=== PATIENT | male | born 2000 | race Hispanic/Latino ===

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

== ENCOUNTER 2022-08-16 01:41 | Emergency (ER) | payer OTHER ==
--- OUTSIDE RECORDS SUMMARY | 2022-08-16 01:47 | XMS REPORT | Continuity of Care Document ---
:2000 Author Organization [facility] t Address [address] [place] [address] Care Team Providers Name Role Phone SALAS DOYLE Primary Care Physician Unavailable Ansley Richards PA-C Attending Clinician ANSLEY RICHARDS Attending Clinician Unavailable SALAS DOYLE Attending Clinician Unavailable Doctor Unassigned, [place] Attending Clinician Unavailable Wilmer Handy MD Attending Clinician JHON KIM Attending Clinician Unavailable Matheus Panchal MD Attending Clinician Jhon Kim MD Attending Clinician ROCKY SALEEM Attending Clinician Unavailable Chidi Solorzano MA Attending Clinician Unavailable Anitha Choudhary MD Attending Clinician ANITHA CHOUDHARY Attending Clinician Unavailable Rocky Saleem MD Attending Clinician OLE DE LA GARZA Attending Clinician Unavailable Ole Hays Attending Clinician Sheri Acevedo RN Attending Clinician Unavailable FRAN DE JESUS Attending Clinician Unavailable Mino Donahue DO Attending Clinician Payers Payer Name Policy Type Policy Number Effective Date Expiration Date S ource Problems Condition Condition Condition Status Onset Resolution Last Treating Co mments Source Name Details Category Date Date Treatment Clinician Date Asthma Asthma Disease Active 2018-0 [facility] 3-21 ity of 00:00: [address] 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 Allergies, Adverse Reactions, Alerts Allergy Allergy Status Severity Reaction(s) Onset Inactive Treating Comm ents Source Name Type Date Date Clinician NO KNOWN Drug Active Univers ALLERGIE Class ity of S [facility] Social History Social Habit Start Date Stop Date Quantity Comments Source History of Passive smoker [place] of tobacco use [facility] Exposure to 2022-06-21 2022-07-01 Not sure [facility] SARS-CoV-2 00:00:00 14:43:00 [facility] (event) Branch Tobacco use and 2017-12-15 2017-12-15 Smokeless tobacco Un iversity of exposure 00:00:00 00:00:00 non-user [facility] Sex Assigned At [birth year] Universit y of 00:00:00 00:00:00 [facility] Smoking Status Start Date Stop Date Source Never smoked tobacco [facility] [place] [facility] Medications Ordered Filled Start Stop Current Ordering Indication Dosage Frequency Signature Comments Components Source Medication Medication Date Date Medication? Clinician (SIG) Name Name amphetamine 2021-09 Yes [id number] 20mg Take 1 Univers -dextroamph 0-07 capsule by it y of etamine 00:00: mouth [place] (ADDERALL 00 every Medical XR) 20 mg morning. Branch 24 hr capsule amphetamine 2021-09 Yes [id number] 20mg Take 1 Univers -dextroamph 0-07 capsule by it y of etamine 00:00: mouth [place] (ADDERALL 00 every Medical XR) 20 mg morning. Branch 24 hr capsule amphetamine 2021-09 Yes [id number] 20mg Take 1 Univers -dextroamph 0-07 capsule by it y of etamine 00:00: mouth [place] (ADDERALL 00 every Medical XR) 20 mg morning. Branch 24 hr capsule lisdexamfet Yes [id number] 60mg Take 1 Univers amine 9-20 capsule by ity of (VYVANSE) 00:00: mouth [place] 60 mg 00 every Medical capsule morning. Branch lisdexamfet Yes [id number] 60mg Take 1 [facility] amine 9-20 capsule by ity of (VYVANSE) 00:00: mouth [place] 60 mg 00 every Medical capsule morning. Branch lisdexamfet Yes [id number] 60mg Take 1 Univers amine 9-20 capsule by ity of (VYVANSE) 00:00: mouth [place] 60 mg 00 every Medical capsule morning. Branch lisdexamfet Yes [id number] 60mg Take 1 Univers amine 9-20 capsule by ity of (VYVANSE) 00:00: mouth [place] 60 mg 00 every Medical capsule morning. Branch lisdexamfet 2021- No [id number] 60mg Take 1 Univers amine 9-20 10-07 capsule by ity of (VYVANSE) 00:00: 00:00 mouth [place] 60 mg 00 :00 every Medical capsule morning. Branch lisdexamfet Yes [id number] 60mg Take 1 Univers amine 8-17 capsule by ity of (VYVANSE) 00:00: mouth [place] 60 mg 00 every Medical capsule morning. Branch lisdexamfet 0 2021- No [id number] 60mg Take 1 Univers amine 8-17 09-20 capsule by ity of (VYVANSE) 00:00: 00:00 mouth [place] 60 mg 00 :00 every Medical capsule morning. Branch lisdexamfet Yes [id number] 60mg Take 1 Univers amine 7-13 capsule by ity of (VYVANSE) 00:00: mouth [place] 60 mg 00 every Medical capsule morning. Branch lisdexamfet 2021-0 2- No [id number] 60mg Take 1 Univers amine 7-13 08-17 capsule by ity of (VYVANSE) 00:00: 00:00 mouth [place] 60 mg 00 :00 every Medical capsule morning. Branch lisdexamfet 2021-0 Yes [id number] 60mg Take 1 Univers amine 6-07 capsule by ity of (VYVANSE) 00:00: mouth [place] 60 mg 00 every Medical capsule morning. Branch lisdexamfet 2021-0 Yes [id number] 60mg Take 1 Univers amine 6-07 capsule by ity of (VYVANSE) 00:00: mouth [place] 60 mg 00 every Medical capsule morning. Branch lisdexamfet 2021-0 2021- No [id number] 60mg Take 1 Univers amine 6-07 07-13 capsule by ity of (VYVANSE) 00:00: 00:00 mouth [place] 60 mg 00 :00 every Medical capsule morning. Branch polyethylen 2021-0 Yes [id number] Mix 1-2 Univers e glycol 4-25 capfuls ity of 3350 00:00: with 8 oz [place] (MIRALAX) 00 water or Medica l 17 juice and Branch gram/dose take once powder daily to produce soft stool fluticasone 2-0 Yes [id number] 2{spray Use 2 Univers propionate 4-25 } Sprays in ity of 50 00:00: each [place] mcg/actuati 00 nostril Medic al on nasal daily. Branch spray polyethylen 2021-0 Yes [id number] Mix 1-2 Univers e glycol 4-25 capfuls ity of 3350 00:00: with 8 oz [place] (MIRALAX) 00 water or Medica l 17 juice and Branch gram/dose take once powder daily to produce soft stool fluticasone 2022-0 Yes [id number] 2{spray Use 2 Univers propionate 4-25 } Sprays in ity of 50 00:00: each [place] mcg/actuati 00 nostril Medic al on nasal daily. Branch spray polyethylen 2-0 Yes [id number] Mix 1-2 Univers e glycol 4-25 capfuls ity of 3350 00:00: with 8 oz [place] (MIRALAX) 00 water or Medica l 17 juice and Branch gram/dose take once powder daily to produce soft stool fluticasone 2022-0 Yes [id number] 2{spray Use 2 Univers propionate 4-25 } Sprays in ity of 50 00:00: each [place] mcg/actuati 00 nostril Medic al on nasal daily. Branch spray polyethylen 2022-0 Yes [id number] Mix 1-2 Univers e glycol 4-25 capfuls ity of 3350 00:00: with 8 oz [place] (MIRALAX) 00 water or Medica l 17 juice and Branch gram/dose take once powder daily to produce soft stool fluticasone 2022-0 Yes [id number] 2{spray Use 2 Univers propionate 4-25 } Sprays in ity of 50 00:00: each [place] mcg/actuati 00 nostril Medic al on nasal daily. Branch spray polyethylen 2022-0 Yes [id number] Mix 1-2 Univers e glycol 4-25 capfuls ity of 3350 00:00: with 8 oz [place] (MIRALAX) 00 water or Medica l 17 juice and Branch gram/dose take once powder daily to produce soft stool fluticasone 2022-0 Yes [id number] 2{spray Use 2 Univers propionate 4-25 } Sprays in ity of 50 00:00: each [place] mcg/actuati 00 nostril Medic al on nasal daily. Branch spray polyethylen 2022-0 Yes [id number] Mix 1-2 Univers e glycol 4-25 capfuls ity of 3350 00:00: with 8 oz [place] (MIRALAX) 00 water or Medica l 17 juice and Branch gram/dose take once powder daily to produce soft stool fluticasone 2022-0 Yes [id number] 2{spray Use 2 Univers propionate 4-25 } Sprays in ity of 50 00:00: each [place] mcg/actuati 00 nostril Medic al on nasal daily. Branch spray polyethylen 2022-0 Yes [id number] Mix 1-2 Univers e glycol 4-25 capfuls ity of 3350 00:00: with 8 oz [place] (MIRALAX) 00 water or Medica l 17 juice and Branch gram/dose take once powder daily to produce soft stool fluticasone 2022-0 Yes [id number] 2{spray Use 2 Univers propionate 4-25 } Sprays in ity of 50 00:00: each [place] mcg/actuati 00 nostril Medic al on nasal daily. Branch spray polyethylen 2-0 Yes [id number] Mix 1-2 Univers e glycol 4-25 capfuls ity of 3350 00:00: with 8 oz [place] (MIRALAX) 00 water or Medica l 17 juice and Branch gram/dose take once powder daily to produce soft stool fluticasone 2022-0 Yes [id number] 2{spray Use 2 Univers propionate 4-25 } Sprays in ity of 50 00:00: each [place] mcg/actuati 00 nostril Medic al on nasal daily. Branch spray polyethylen 2-0 Yes [id number] Mix 1-2 Univers e glycol 4-25 capfuls ity of 3350 00:00: with 8 oz [place] (MIRALAX) 00 water or Medica l 17 juice and Branch gram/dose take once powder daily to produce soft stool fluticasone 2022-0 Yes [id number] 2{spray Use 2 Univers propionate 4-25 } Sprays in ity of 50 00:00: each [place] mcg/actuati 00 nostril Medic al on nasal daily. Branch spray polyethylen 2-0 Yes [id number] Mix 1-2 Univers e glycol 4-25 capfuls ity of 3350 00:00: with 8 oz [place] (MIRALAX) 00 water or Medica l 17 juice and Branch gram/dose take once powder daily to produce soft stool fluticasone 2022-0 Yes [id number] 2{spray Use 2 Univers propionate 4-25 } Sprays in ity of 50 00:00: each [place] mcg/actuati 00 nostril Medic al on nasal daily. Branch spray polyethylen 2-0 Yes [id number] Mix 1-2 Univers e glycol 4-25 capfuls ity of 3350 00:00: with 8 oz [place] (MIRALAX) 00 water or Medica l 17 juice and Branch gram/dose take once powder daily to produce soft stool fluticasone 2022-0 Yes [id number] 2{spray Use 2 Univers propionate 4-25 } Sprays in ity of 50 00:00: each [place] mcg/actuati 00 nostril Medic al on nasal daily. Branch spray polyethylen 2022-0 Yes [id number] Mix 1-2 Univers e glycol 4-25 capfuls ity of 3350 00:00: with 8 oz [place] (MIRALAX) 00 water or Medica l 17 juice and Branch gram/dose take once powder daily to produce soft stool fluticasone Yes [id number] 2{spray Use 2 Univers propionate 4-25 } Sprays in ity of 50 00:00: each [place] mcg/actuati 00 nostril Medic al on nasal daily. Branch spray pantoprazol Yes [id number] 40mg Take 1 Univers e 40 mg EC 8-30 tablet by ity of tablet 00:00: mouth [place] 00 daily. Medical Branch aluminum Yes [id number] Apply to Univers chloride 20 8-30 area(s) at it y of % external 00:00: bedtime. [place] solution 00 Medical Branch ketoconazol Yes [id number] Apply to Univers e 2 % 8-30 area(s) ity of shampoo 00:00: once daily [place] 00 as needed Medical for Branch Itching. pantoprazol Yes [id number] 40mg Take 1 Univers e 40 mg EC 8-30 tablet by ity of tablet 00:00: mouth [place] 00 daily. Medical Branch aluminum Yes [id number] Apply to Univers chloride 20 8-30 area(s) at it y of % external 00:00: bedtime. [place] solution 00 Medical Branch ketoconazol Yes [id number] Apply to Univers e 2 % 8-30 area(s) ity of shampoo 00:00: once daily [place] 00 as needed Medical for Branch Itching. pantoprazol Yes [id number] 40mg Take 1 Univers e 40 mg EC 8-30 tablet by ity of tablet 00:00: mouth [place] 00 daily. Medical Branch aluminum Yes [id number] Apply to Univers chloride 20 8-30 area(s) at it y of % external 00:00: bedtime. [place] solution 00 Medical Branch ketoconazol Yes [id number] Apply to Univers e 2 % 8-30 area(s) ity of shampoo 00:00: once daily [place] 00 as needed Medical for Branch Itching. pantoprazol Yes [id number] 40mg Take 1 Univers e 40 mg EC 8-30 tablet by ity of tablet 00:00: mouth [place] 00 daily. Medical Branch aluminum 0 Yes [id number] Apply to Univers chloride 20 8-30 area(s) at it y of % external 00:00: bedtime. [place] solution 00 Medical Branch ketoconazol Yes [id number] Apply to Univers e 2 % 8-30 area(s) ity of shampoo 00:00: once daily [place] 00 as needed Medical for Branch Itching. pantoprazol Yes [id number] 40mg Take 1 Univers e 40 mg EC 8-30 tablet by ity of tablet 00:00: mouth [place] 00 daily. Medical Branch aluminum 0 Yes [id number] Apply to Univers chloride 20 8-30 area(s) at it y of % external 00:00: bedtime. [place] solution 00 Medical Branch ketoconazol Yes [id number] Apply to Univers e 2 % 8-30 area(s) ity of shampoo 00:00: once daily [place] 00 as needed Medical for Branch Itching. pantoprazol Yes [id number] 40mg Take 1 Univers e 40 mg EC 8-30 tablet by ity of tablet 00:00: mouth [place] 00 daily. Medical Branch aluminum 0 Yes [id number] Apply to Univers chloride 20 8-30 area(s) at it y of % external 00:00: bedtime. [place] solution 00 Medical Branch ketoconazol Yes [id number] Apply to Univers e 2 % 8-30 area(s) ity of shampoo 00:00: once daily [place] 00 as needed Medical for Branch Itching. pantoprazol Yes [id number] 40mg Take 1 Univers e 40 mg EC 8-30 tablet by ity of tablet 00:00: mouth [place] 00 daily. Medical Branch aluminum 0 Yes [id number] Apply to Univers chloride 20 8-30 area(s) at it y of % external 00:00: bedtime. [place] solution 00 Medical Branch ketoconazol Yes [id number] Apply to Univers e 2 % 8-30 area(s) ity of shampoo 00:00: once daily [place] 00 as needed Medical for Branch Itching. pantoprazol Yes [id number] 40mg Take 1 Univers e 40 mg EC 8-30 tablet by ity of tablet 00:00: mouth [place] 00 daily. Medical Branch aluminum 0 Yes [id number] Apply to Univers chloride 20 8-30 area(s) at it y of % external 00:00: bedtime. [place] solution 00 Medical Branch ketoconazol Yes [id number] Apply to Univers e 2 % 8-30 area(s) ity of shampoo 00:00: once daily [place] 00 as needed Medical for Branch Itching. pantoprazol Yes [id number] 40mg Take 1 Univers e 40 mg EC 8-30 tablet by ity of tablet 00:00: mouth [place] 00 daily. Medical Branch aluminum Yes [id number] Apply to Univers chloride 20 8-30 area(s) at it y of % external 00:00: bedtime. [place] solution 00 Medical Branch ketoconazol Yes [id number] Apply to Univers e 2 % 8-30 area(s) ity of shampoo 00:00: once daily [place] 00 as needed Medical for Branch Itching. pantoprazol Yes [id number] 40mg Take 1 Univers e 40 mg EC 8-30 tablet by ity of tablet 00:00: mouth [place] 00 daily. Medical Branch aluminum Yes [id number] Apply to Univers chloride 20 8-30 area(s) at it y of % external 00:00: bedtime. [place] solution 00 Medical Branch ketoconazol Yes [id number] Apply to Univers e 2 % 8-30 area(s) ity of shampoo 00:00: once daily [place] 00 as needed Medical for Branch Itching. pantoprazol Yes [id number] 40mg Take 1 Univers e 40 mg EC 8-30 tablet by ity of tablet 00:00: mouth [place] 00 daily. Medical Branch aluminum Yes [id number] Apply to Univers chloride 20 8-30 area(s) at it y of % external 00:00: bedtime. [place] solution 00 Medical Branch ketoconazol 0 Yes [id number] Apply to Univers e 2 % 8-30 area(s) ity of shampoo 00:00: once daily [place] 00 as needed Medical for Branch Itching. pantoprazol 0 Yes [id number] 40mg Take 1 Univers e 40 mg EC 8-30 tablet by ity of tablet 00:00: mouth [place] 00 daily. Medical Branch aluminum 2020-0 Yes [id number] Apply to Univers chloride 20 8-30 area(s) at it y of % external 00:00: bedtime. [place] solution 00 Medical Branch ketoconazol 0 Yes [id number] Apply to Univers e 2 % 8-30 area(s) ity of shampoo 00:00: once daily [place] 00 as needed Medical for Branch Itching. clindamycin 0 Yes [id number] Apply to Univers 1 % gel 4-19 area(s) ity of 00:00: every [place] 00 morning. Medical Branch tretinoin 2020-0 Yes [id number] Apply to Univers 0.025 % 4-19 area(s) at ity of cream 00:00: bedtime. Medical Branch clindamycin 2020-0 Yes [id number] Apply to Univers 1 % gel 4-19 area(s) ity of 00:00: every [place] 00 morning. Medical Branch tretinoin 2020-0 Yes [id number] Apply to Univers 0.025 % 4-19 area(s) at ity of cream 00:00: bedtime. Medical Branch clindamycin 2020-0 Yes [id number] Apply to Univers 1 % gel 4-19 area(s) ity of 00:00: every [place] 00 morning. Medical Branch tretinoin 2020-0 Yes [id number] Apply to Univers 0.025 % 4-19 area(s) at ity of cream 00:00: bedtime. Medical Branch clindamycin 2020-0 Yes [id number] Apply to Univers 1 % gel 4-19 area(s) ity of 00:00: every [place] 00 morning. Medical Branch tretinoin 2020-0 Yes [id number] Apply to Univers 0.025 % 4-19 area(s) at ity of cream 00:00: bedtime. [place] Medical Branch clindamycin 2020-0 Yes [id number] Apply to Univers 1 % gel 4-19 area(s) ity of 00:00: every [place] 00 morning. Medical Branch tretinoin 1-0 Yes [id number] Apply to Univers 0.025 % 4-19 area(s) at ity of cream 00:00: bedtime. [place] Medical Branch clindamycin 2020-0 Yes [id number] Apply to Univers 1 % gel 4-19 area(s) ity of 00:00: every [place] 00 morning. Medical Branch tretinoin 2020-0 Yes [id number] Apply to Univers 0.025 % 4-19 area(s) at ity of cream 00:00: bedtime. [place] Medical Branch clindamycin 2020-0 Yes [id number] Apply to Univers 1 % gel 4-19 area(s) ity of 00:00: every [place] 00 morning. Medical Branch tretinoin 2020-0 Yes [id number] Apply to Univers 0.025 % 4-19 area(s) at ity of cream 00:00: bedtime. [place] Medical Branch clindamycin 2020-0 Yes [id number] Apply to Univers 1 % gel 4-19 area(s) ity of 00:00: every [place] 00 morning. Medical Branch tretinoin 2020-0 Yes [id number] Apply to Univers 0.025 % 4-19 area(s) at ity of cream 00:00: bedtime. [place] Medical Branch clindamycin 2020-0 Yes [id number] Apply to Univers 1 % gel 4-19 area(s) ity of 00:00: every [place] 00 morning. Medical Branch tretinoin 1-0 Yes [id number] Apply to Univers 0.025 % 4-19 area(s) at ity of cream 00:00: bedtime. [place] Medical Branch clindamycin 2020-0 Yes [id number] Apply to Univers 1 % gel 4-19 area(s) ity of 00:00: every [place] 00 morning. Medical Branch tretinoin 1-0 Yes [id number] Apply to Univers 0.025 % 4-19 area(s) at ity of cream 00:00: bedtime. Medical Branch clindamycin 2020-0 Yes [id number] Apply to Univers 1 % gel 4-19 area(s) ity of 00:00: every [place] 00 morning. Medical Branch tretinoin 1-0 Yes [id number] Apply to Univers 0.025 % 4-19 area(s) at ity of cream 00:00: bedtime. [place] [facility] Branch clindamycin 2020-0 Yes [id number] Apply to Univers 1 % gel 4-19 area(s) ity of 00:00: every [place] 00 morning. Medical Branch tretinoin 2020-0 Yes [id number] Apply to Univers 0.025 % 4-19 area(s) at ity of cream 00:00: bedtime. [place] Medical Branch fluticasone 2020-0 Yes [id number] 2{puff} Inhale 2 Univers propion-luiz 2-23 Puffs 2 ity o f meteroL 00:00: (two) [place] 115-21 00 times Medical mcg/actuati daily. Branch on inhaler fluocinolon 2020-0 Yes [id number] Apply to Univers e 0.01 % 2-23 area(s) 2 ity of solution 00:00: (two) [place] 00 times Medical daily. Branch fluticasone 2020-0 Yes [id number] 2{puff} Inhale 2 Univers propion-luiz 2-23 Puffs 2 ity o f meteroL 00:00: (two) [place] 115-21 00 times Medical mcg/actuati daily. Branch on inhaler fluocinolon 2020-0 Yes [id number] Apply to Univers e 0.01 % 2-23 area(s) 2 ity of solution 00:00: (two) [place] 00 times Medical daily. Branch fluticasone 2020-0 Yes [id number] 2{puff} Inhale 2 Univers propion-luiz 2-23 Puffs 2 ity o f meteroL 00:00: (two) [place] 115-21 00 times Medical mcg/actuati daily. Branch on inhaler fluocinolon 2020-0 Yes [id number] Apply to Univers e 0.01 % 2-23 area(s) 2 ity of solution 00:00: (two) [place] 00 times Medical daily. Branch fluticasone 2020-0 Yes [id number] 2{puff} Inhale 2 Univers propion-luiz 2-23 Puffs 2 ity o f meteroL 00:00: (two) [place] - 00 times Medical mcg/actuati daily. Branch on inhaler fluocinolon 1-0 Yes [id number] Apply to Univers e 0.01 % 2-23 area(s) 2 ity of solution 00:00: (two) [place] 00 times Medical daily. Branch fluticasone 1-0 Yes [id number] 2{puff} Inhale 2 Univers propion-luiz 2-23 Puffs 2 ity o f meteroL 00:00: (two) [place] - 00 times Medical mcg/actuati daily. Branch on inhaler fluocinolon 2020-0 Yes [id number] Apply to Univers e 0.01 % 2-23 area(s) 2 ity of solution 00:00: (two) [place] 00 times Medical daily. Branch fluticasone 1-0 Yes [id number] 2{puff} Inhale 2 Univers propion-luiz 2-23 Puffs 2 ity o f meteroL 00:00: (two) [place] - 00 times Medical mcg/actuati daily. Branch on inhaler fluocinolon 2020-0 Yes [id number] Apply to Univers e 0.01 % 2-23 area(s) 2 ity of solution 00:00: (two) [place] 00 times Medical daily. Branch fluticasone 2020-0 Yes [id number] 2{puff} Inhale 2 Univers propion-luiz 2-23 Puffs 2 ity o f meteroL 00:00: (two) [place] - 00 times Medical mcg/actuati daily. Branch on inhaler fluocinolon 2020-0 Yes [id number] Apply to Univers e 0.01 % 2-23 area(s) 2 ity of solution 00:00: (two) [place] 00 times Medical daily. Branch fluticasone 1-0 Yes [id number] 2{puff} Inhale 2 Univers propion-luiz 2-23 Puffs 2 ity o f meteroL 00:00: (two) [place] 115- 00 times Medical mcg/actuati daily. Branch on inhaler fluocinolon 1-0 Yes [id number] Apply to Univers e 0.01 % 2-23 area(s) 2 ity of solution 00:00: (two) [place] 00 times Medical daily. Branch fluticasone 2020-0 Yes [id number] 2{puff} Inhale 2 Univers propion-luiz 2-23 Puffs 2 ity o f meteroL 00:00: (two) [place] 115-21 00 times Medical mcg/actuati daily. Branch on inhaler fluocinolon 2020-0 Yes [id number] Apply to Univers e 0.01 % 2-23 area(s) 2 ity of solution 00:00: (two) [place] 00 times Medical daily. Branch fluticasone 2020-0 Yes [id number] 2{puff} Inhale 2 Univers propion-luiz 2-23 Puffs 2 ity o f meteroL 00:00: (two) [place] 115-21 00 times Medical mcg/actuati daily. Branch on inhaler fluocinolon 2020-0 Yes [id number] Apply to Univers e 0.01 % 2-23 area(s) 2 ity of solution 00:00: (two) [place] 00 times Medical daily. Branch fluticasone 2020-0 Yes [id number] 2{puff} Inhale 2 Univers propion-luiz 2-23 Puffs 2 ity o f meteroL 00:00: (two) [place] - 00 times Medical mcg/actuati daily. Branch on inhaler fluocinolon 2020-0 Yes [id number] Apply to Univers e 0.01 % 2-23 area(s) 2 ity of solution 00:00: (two) [place] 00 times Medical daily. Branch fluticasone 2020-0 Yes [id number] 2{puff} Inhale 2 Univers propion-luiz 2-23 Puffs 2 ity o f meteroL 00:00: (two) [place] 115-21 00 times Medical mcg/actuati daily. Branch on inhaler fluocinolon 2020-0 Yes [id number] Apply to Univers e 0.01 % 2-23 area(s) 2 ity of solution 00:00: (two) [place] 00 times Medical daily. Branch albuterol 2020-0 Yes [id number] 2{puff} Inhale 2 Univers 90 1-19 Puffs ity of mcg/actuati 00:00: every 6 [place] on inhaler 00 (six) Medical hours as Branch needed for Wheezing or Shortness of Breath. albuterol Yes [id number] 2{puff} Inhale 2 Univers 90 1-19 Puffs ity of mcg/actuati 00:00: every 6 [place] on inhaler 00 (six) Medical hours as Branch needed for Wheezing or Shortness of Breath. albuterol Yes [id number] 2{puff} Inhale 2 Univers 90 1-19 Puffs ity of mcg/actuati 00:00: every 6 [place] on inhaler 00 (six) Medical hours as Branch needed for Wheezing or Shortness of Breath. albuterol Yes [id number] 2{puff} Inhale 2 Univers 90 1-19 Puffs ity of mcg/actuati 00:00: every 6 [place] on inhaler 00 (six) Medical hours as Branch needed for Wheezing or Shortness of Breath. albuterol Yes [id number] 2{puff} Inhale 2 Univers 90 1-19 Puffs ity of mcg/actuati 00:00: every 6 [place] on inhaler 00 (six) Medical hours as Branch needed for Wheezing or Shortness of Breath. albuterol Yes [id number] 2{puff} Inhale 2 Univers 90 1-19 Puffs ity of mcg/actuati 00:00: every 6 [place] on inhaler 00 (six) Medical hours as Branch needed for Wheezing or Shortness of Breath. albuterol Yes [id number] 2{puff} Inhale 2 Univers 90 1-19 Puffs ity of mcg/actuati 00:00: every 6 [place] on inhaler 00 (six) Medical hours as Branch needed for Wheezing or Shortness of Breath. albuterol Yes [id number] 2{puff} Inhale 2 Univers 90 1-19 Puffs ity of mcg/actuati 00:00: every 6 [place] on inhaler 00 (six) Medical hours as Branch needed for Wheezing or Shortness of Breath. albuterol Yes [id number] 2{puff} Inhale 2 [facility] 90 1-19 Puffs ity of mcg/actuati 00:00: every 6 [place] as on inhaler 00 (six) Medical hours as Branch needed for Wheezing or Shortness of Breath. albuterol Yes [id number] 2{puff} Inhale 2 [facility] 90 1-19 Puffs ity of mcg/actuati 00:00: every 6 [place] as on inhaler 00 (six) Medical hours as Branch needed for Wheezing or Shortness of Breath. albuterol Yes [id number] 2{puff} Inhale 2 [facility] 90 1-19 Puffs ity of mcg/actuati 00:00: every 6 [place] as on inhaler 00 (six) Medical hours as Branch needed for Wheezing or Shortness of Breath. albuterol Yes [id number] 2{puff} Inhale 2 [facility] 90 1-19 Puffs ity of mcg/actuati 00:00: every 6 [place] as on inhaler 00 (six) Medical hours as Branch needed for Wheezing or Shortness of Breath. adapalene-b 2019-09 Yes [id number] AAA qhs, Univers enzoyl 1-04 avoid eyes ity of peroxide 00:00: nose mouth [place] as (EPIDUO) 00 Medical 0.1-2.5 % Branch GlwP adapalene-b 2019-09 Yes [id number] AAA qhs, Univers enzoyl 1-04 avoid eyes ity of peroxide 00:00: nose mouth [place] [facility] (EPIDUO) 00 Medical 0.1-2.5 % Branch GlwP adapalene-b 2019-09 Yes [id number] AAA qhs, Univers enzoyl 1-04 avoid eyes ity of peroxide 00:00: nose mouth [place] [facility] (EPIDUO) 00 Medical 0.1-2.5 % Branch GlwP adapalene-b 2019-09 Yes [id number] AAA qhs, Univers enzoyl 1-04 avoid eyes ity of peroxide 00:00: nose mouth [place] as (EPIDUO) 00 Medical 0.1-2.5 % Branch GlwP adapalene-b 2019-09 Yes [id number] AAA qhs, Univers enzoyl 1-04 avoid eyes ity of peroxide 00:00: nose mouth [place] [facility] (EPIDUO) 00 Medical 0.1-2.5 % Branch GlwP adapalene-b 2019-09 Yes [id number] AAA qhs, Univers enzoyl 1-04 avoid eyes ity of peroxide 00:00: nose mouth [place] [facility] (EPIDUO) 00 Medical 0.1-2.5 % Branch GlwP adapalene-b 2019-09 Yes [id number] AAA qhs, Univers enzoyl 1-04 avoid eyes ity of peroxide 00:00: nose mouth [place] [facility] (EPIDUO) 00 Medical 0.1-2.5 % Branch GlwP adapalene-b 2019-09 Yes [id number] AAA qhs, Univers enzoyl 1-04 avoid eyes ity of peroxide 00:00: nose mouth [place] as (EPIDUO) 00 Medical 0.1-2.5 % Branch GlwP adapalene-b 2019-09 Yes [id number] AAA qhs, Univers enzoyl 1-04 avoid eyes ity of peroxide 00:00: nose mouth [place] [facility] (EPIDUO) 00 Medical 0.1-2.5 % Branch GlwP adapalene-b 2019-09 Yes [id number] AAA qhs, Univers enzoyl 1-04 avoid eyes ity of peroxide 00:00: nose mouth [place] [facility] (EPIDUO) 00 Medical 0.1-2.5 % Branch GlwP adapalene-b 2019-09 Yes [id number] AAA qhs, Univers enzoyl 1-04 avoid eyes ity of peroxide 00:00: nose mouth [place] as (EPIDUO) 00 Medical 0.1-2.5 % Branch GlwP adapalene-b 2019-09 Yes [id number] AAA qhs, Univers enzoyl 1-04 avoid eyes ity of peroxide 00:00: nose mouth [place] as (EPIDUO) 00 Medical 0.1-2.5 % Branch GlwP Immunizations Ordered Immunization Filled Immunization Date Status Commen ts Source Name Name Meningococcal B, OMV 2021-05-26 Completed Univ ersity of 00:00:00 [facility] Meningococcal B, OMV 2021-05-26 Completed Univ ersity of 00:00:00 [facility] Branch Meningococcal B, OMV 2021-05-26 Completed Univ ersity of 00:00:00 [facility] Branch Meningococcal B, OMV 2021-05-26 Completed Univ ersity of 00:00:00 [facility] Meningococcal B, OMV 2021-05-26 Completed Univ ersity of 00:00:00 [facility] Branch Meningococcal B, OMV 2021-05-26 Completed Univ ersity of 00:00:00 [facility] Branch Meningococcal B, OMV 2021-05-26 Completed Univ ersity of 00:00:00 [facility] Meningococcal B, OMV 2021-05-26 Completed Univ ersity of 00:00:00 [facility] Meningococcal B, OMV 2021-05-26 Completed Univ ersity of 00:00:00 [facility] Branch Meningococcal B, OMV 2021-05-26 Completed Univ ersity of 00:00:00 [facility] Branch Meningococcal B, OMV 2021-05-26 Completed Univ ersity of 00:00:00 [facility] Branch Meningococcal B, OMV 2021-05-26 Completed Univ ersity of 00:00:00 [facility] Branch SARS-COV-2 COVID-19 2021-01-28 Completed Unive rsity of MODERNA VACCINE 00:00:00 [facility] ical Branch SARS-COV-2 COVID-19 2021-01-28 Completed Unive rsity of MODERNA VACCINE 00:00:00 [facility] ical Branch SARS-COV-2 COVID-19 2021-01-28 Completed Unive rsity of MODERNA VACCINE 00:00:00 [place] [facility] SARS-COV-2 COVID-19 2021-01-28 Completed Unive rsity of MODERNA VACCINE 00:00:00 [place] [facility] SARS-COV-2 COVID-19 2021-01-28 Completed Unive rsity of MODERNA 12+ YRS 00:00:00 [place] [facility] VACCINE Branch SARS-COV-2 COVID-19 2021-01-28 Completed Unive rsity of MODERNA 12+ YRS 00:00:00 [place] [facility] VACCINE Branch SARS-COV-2 COVID-19 2021-01-28 Completed Unive rsity of MODERNA 12+ YRS 00:00:00 [place] [facility] VACCINE Branch SARS-COV-2 COVID-19 2021-01-28 Completed Unive rsity of MODERNA 12+ YRS 00:00:00 [place] [facility] VACCINE Branch SARS-COV-2 COVID-19 2021-01-28 Completed Unive rsity of MODERNA 12+ YRS 00:00:00 [place] [facility] VACCINE Branch SARS-COV-2 COVID-19 2021-01-28 Completed Unive rsity of MODERNA 12+ YRS 00:00:00 [place] [facility] VACCINE Branch SARS-COV-2 COVID-19 2021-01-28 Completed Unive rsity of MODERNA 12+ YRS 00:00:00 [place] [facility] VACCINE Branch SARS-COV-2 COVID-19 2021-01-28 Completed Unive rsity of MODERNA 12+ YRS 00:00:00 [place] [facility] VACCINE Branch SARS-COV-2 COVID-19 2020-12-31 Completed Unive rsity of MODERNA VACCINE 00:00:00 [place] [facility] SARS-COV-2 COVID-19 2020-12-31 Completed Unive rsity of MODERNA VACCINE 00:00:00 [place] [facility] SARS-COV-2 COVID-19 2020-12-31 Completed Unive rsity of MODERNA VACCINE 00:00:00 [place] [facility] SARS-COV-2 COVID-19 2020-12-31 Completed Unive rsity of MODERNA VACCINE 00:00:00 [place] [facility] SARS-COV-2 COVID-19 2020-12-31 Completed Unive rsity of MODERNA 12+ YRS 00:00:00 [place] [facility] VACCINE Branch SARS-COV-2 COVID-19 2020-12-31 Completed Unive rsity of MODERNA 12+ YRS 00:00:00 [place] [facility] VACCINE Branch SARS-COV-2 COVID-19 2020-12-31 Completed Unive rsity of MODERNA 12+ YRS 00:00:00 [place] [facility] VACCINE Branch SARS-COV-2 COVID-19 2020-12-31 Completed Unive rsity of MODERNA 12+ YRS 00:00:00 [place] [facility] VACCINE Branch SARS-COV-2 COVID-19 2020-12-31 Completed Unive rsity of MODERNA 12+ YRS 00:00:00 [place] [facility] VACCINE Branch SARS-COV-2 COVID-19 2020-12-31 Completed Unive rsity of MODERNA 12+ YRS 00:00:00 [place] [facility] VACCINE Branch SARS-COV-2 COVID-19 2020-12-31 Completed Unive rsity of MODERNA 12+ YRS 00:00:00 [place] [facility] VACCINE Branch SARS-COV-2 COVID-19 2020-12-31 Completed Unive rsity of MODERNA 12+ YRS 00:00:00 [facility] VACCINE Branch TDAP (ADACEL) VACCINE 2019-05-12 Completed Uni versity of 00:00:00 [place] [facility] HPV9 2019-05-12 Completed University of 00:00:00 [facility] TDAP (ADACEL) VACCINE 2019-05-12 Completed Uni versity of 00:00:00 [place] [facility] HPV9 2019-05-12 Completed University of 00:00:00 [place] [facility] TDAP (ADACEL) VACCINE 2019-05-12 Completed Uni versity of 00:00:00 [place] [facility] HPV9 2019-05-12 Completed University of 00:00:00 [facility] TDAP (ADACEL) VACCINE 2019-05-12 Completed Uni versity of 00:00:00 [place] [facility] HPV9 2019-05-12 Completed University of 00:00:00 [facility] TDAP (ADACEL) VACCINE 2019-05-12 Completed Uni versity of 00:00:00 [place] [facility] HPV9 2019-05-12 Completed University of 00:00:00 [facility] TDAP (ADACEL) VACCINE 2019-05-12 Completed Uni versity of 00:00:00 [place] [facility] HPV9 2019-05-12 Completed University of 00:00:00 [facility] TDAP (ADACEL) VACCINE 2019-05-12 Completed Uni versity of 00:00:00 [place] [facility] HPV9 2019-05-12 Completed University of 00:00:00 [facility] TDAP (ADACEL) VACCINE 2019-05-12 Completed Uni versity of 00:00:00 [place] [facility] HPV9 2019-05-12 Completed University of 00:00:00 [place] [facility] TDAP (ADACEL) VACCINE 2019-05-12 Completed Uni versity of 00:00:00 [place] [facility] HPV9 2019-05-12 Completed University of 00:00:00 [place] [facility] TDAP (ADACEL) VACCINE 2019-05-12 Completed Uni versity of 00:00:00 [place] [facility] HPV9 2019-05-12 Completed University of 00:00:00 [facility] TDAP (ADACEL) VACCINE 2019-05-12 Completed Uni versity of 00:00:00 [facility] HPV9 2019-05-12 Completed University of 00:00:00 [place] [facility] TDAP (ADACEL) VACCINE 2019-05-12 Completed Uni versity of 00:00:00 [facility] Branch HPV9 2019-05-12 Completed University of 00:00:00 [facility] HPV9 2018-10-12 Completed University of 00:00:00 [facility] HPV9 2018-10-12 Completed University of 00:00:00 [facility] Branch HPV9 2018-10-12 Completed University of 00:00:00 [facility] Branch HPV9 2018-10-12 Completed University of 00:00:00 [facility] HPV9 2018-10-12 Completed University of 00:00:00 [facility] HPV9 2018-10-12 Completed University of 00:00:00 [facility] HPV9 2018-10-12 Completed University of 00:00:00 [facility] HPV9 2018-10-12 Completed University of 00:00:00 [facility] HPV9 2018-10-12 Completed University of 00:00:00 [facility] Branch HPV9 2018-10-12 Completed University of 00:00:00 [facility] Branch HPV9 2018-10-12 Completed University of 00:00:00 [facility] Branch HPV9 2018-10-12 Completed University of 00:00:00 [facility] Meningococcal 2018-05-12 Completed University of Polysaccharide 00:00:00 [place] [facility] (groups A, C, Y and Branc h W-135) conjugate vaccine (MCV4P) HPV9 2018-05-12 Completed University of 00:00:00 [facility] Meningococcal 2018-05-12 Completed University of Polysaccharide 00:00:00 [place] [facility] (groups A, C, Y and Branc h W-135) conjugate vaccine (MCV4P) HPV9 2018-05-12 Completed University of 00:00:00 [facility] Branch Meningococcal 2018-05-12 Completed University of Polysaccharide 00:00:00 [place] [facility] (groups A, C, Y and Branc h W-135) conjugate vaccine (MCV4P) HPV9 2018-05-12 Completed University of 00:00:00 [facility] Branch Meningococcal 2018-05-12 Completed University of Polysaccharide 00:00:00 [place] [facility] (groups A, C, Y and Branc h W-135) conjugate vaccine (MCV4P) HPV9 2018-05-12 Completed University of 00:00:00 [facility] Meningococcal 2018-05-12 Completed University of Polysaccharide 00:00:00 [place] [facility] (groups A, C, Y and Branc h W-135) conjugate vaccine (MCV4P) HPV9 2018-05-12 Completed University of 00:00:00 [facility] Meningococcal 2018-05-12 Completed University of Polysaccharide 00:00:00 [place] [facility] (groups A, C, Y and Branc h W-135) conjugate vaccine (MCV4P) HPV9 2018-05-12 Completed University of 00:00:00 [facility] Meningococcal 2018-05-12 Completed University of Polysaccharide 00:00:00 [place] [facility] (groups A, C, Y and Branc h W-135) conjugate vaccine (MCV4P) HPV9 2018-05-12 Completed University of 00:00:00 [facility] Meningococcal 2018-05-12 Completed University of Polysaccharide 00:00:00 [place] [facility] (groups A, C, Y and Branc h W-135) conjugate vaccine (MCV4P) HPV9 2018-05-12 Completed University of 00:00:00 [facility] Meningococcal 2018-05-12 Completed University of Polysaccharide 00:00:00 [place] [facility] (groups A, C, Y and Branc h W-135) conjugate vaccine (MCV4P) HPV9 2018-05-12 Completed University of 00:00:00 [facility] Meningococcal 2018-05-12 Completed University of Polysaccharide 00:00:00 [place] [facility] (groups A, C, Y and Branc h W-135) conjugate vaccine (MCV4P) HPV9 2018-05-12 Completed University of 00:00:00 [facility] Meningococcal 2018-05-12 Completed University of Polysaccharide 00:00:00 [place] [facility] (groups A, C, Y and Branc h W-135) conjugate vaccine (MCV4P) HPV9 2018-05-12 Completed University of 00:00:00 [facility] Meningococcal 2018-05-12 Completed University of Polysaccharide 00:00:00 [place] [facility] (groups A, C, Y and Branc h W-135) conjugate vaccine (MCV4P) HPV9 2018-05-12 Completed University of 00:00:00 [facility] TDAP 2014-05-02 Completed University of 00:00:00 [facility] TDAP 2014-05-02 Completed University of 00:00:00 [facility] TDAP 2014-05-02 Completed University of 00:00:00 [facility] TDAP 2014-05-02 Completed University of 00:00:00 [facility] TDAP 2014-05-02 Completed University of 00:00:00 [facility] TDAP 2014-05-02 Completed University of 00:00:00 [facility] TDAP 2014-05-02 Completed University of 00:00:00 [facility] TDAP 2014-05-02 Completed University of 00:00:00 [facility] TDAP 2014-05-02 Completed University of 00:00:00 [facility] TDAP 2014-05-02 Completed University of 00:00:00 [facility] TDAP 2014-05-02 Completed University of 00:00:00 [facility] TDAP 2014-05-02 Completed University of 00:00:00 [facility] Varicella 2007-12-13 Completed University of (varivax)(chicken 00:00:00 [place] [facility] pox) Branch Varicella 2007-12-13 Completed University of (varivax)(chicken 00:00:00 [place] [facility] pox) Branch Varicella 2007-12-13 Completed University of (varivax)(chicken 00:00:00 [place] [facility] pox) Branch Varicella 2007-12-13 Completed University of (varivax)(chicken 00:00:00 [place] [facility] pox) Branch Varicella 2007-12-13 Completed University of (varivax)(chicken 00:00:00 [place] [facility] pox) Branch Varicella 2007-12-13 Completed University of (varivax)(chicken 00:00:00 [place] [facility] pox) Branch Varicella 2007-12-13 Completed University of (varivax)(chicken 00:00:00 [place] [facility] pox) Branch Varicella 2007-12-13 Completed University of (varivax)(chicken 00:00:00 [place] [facility] pox) Branch Varicella 2007-12-13 Completed University of (varivax)(chicken 00:00:00 [place] [facility] pox) Branch Varicella 2007-12-13 Completed University of (varivax)(chicken 00:00:00 [place] [facility] pox) Branch Varicella 2007-12-13 Completed University of (varivax)(chicken 00:00:00 [place] [facility] pox) Branch Varicella 2007-12-13 Completed University of (varivax)(chicken 00:00:00 [place] [facility] pox) Branch DTAP 2006-06-17 Completed University of 00:00:00 [facility] HEPATITIS A 2006-06-17 Completed University of 00:00:00 [facility] MMR 2006-06-17 Completed University of 00:00:00 [facility] Polio (IPV/OPV) 2006-06-17 Completed Universit y of 00:00:00 [facility] DTAP 2006-06-17 Completed University of 00:00:00 [facility] HEPATITIS A 2006-06-17 Completed University of 00:00:00 [facility] MMR 2006-06-17 Completed University of 00:00:00 [facility] Polio (IPV/OPV) 2006-06-17 Completed Universit y of 00:00:00 [facility] DTAP 2006-06-17 Completed University of 00:00:00 [facility] HEPATITIS A 2006-06-17 Completed University of 00:00:00 [facility] MMR 2006-06-17 Completed University of 00:00:00 [facility] Polio (IPV/OPV) 2006-06-17 Completed Universit y of 00:00:00 [facility] DTAP 2006-06-17 Completed University of 00:00:00 [facility] HEPATITIS A 2006-06-17 Completed University of 00:00:00 [facility] MMR 2006-06-17 Completed University of 00:00:00 [facility] Polio (IPV/OPV) 2006-06-17 Completed Universit y of 00:00:00 [facility] DTAP 2006-06-17 Completed University of 00:00:00 [facility] HEPATITIS A 2006-06-17 Completed University of 00:00:00 [facility] MMR 2006-06-17 Completed University of 00:00:00 [facility] Polio (IPV/OPV) 2006-06-17 Completed Universit y of 00:00:00 [facility] DTAP 2006-06-17 Completed University of 00:00:00 [facility] HEPATITIS A 2006-06-17 Completed University of 00:00:00 [facility] MMR 2006-06-17 Completed University of 00:00:00 [facility] Polio (IPV/OPV) 2006-06-17 Completed Universit y of 00:00:00 [facility] DTAP 2006-06-17 Completed University of 00:00:00 [facility] HEPATITIS A 2006-06-17 Completed University of 00:00:00 [facility] Branch MMR 2006-06-17 Completed University of 00:00:00 [facility] Branch Polio (IPV/OPV) 2006-06-17 Completed Universit y of 00:00:00 [facility] Branch DTAP 2006-06-17 Completed University of 00:00:00 [facility] HEPATITIS A 2006-06-17 Completed University of 00:00:00 [facility] MMR 2006-06-17 Completed University of 00:00:00 [facility] Branch Polio (IPV/OPV) 2006-06-17 Completed Universit y of 00:00:00 [facility] Branch DTAP 2006-06-17 Completed University of 00:00:00 [facility] HEPATITIS A 2006-06-17 Completed University of 00:00:00 [facility] MMR 2006-06-17 Completed University of 00:00:00 [facility] Polio (IPV/OPV) 2006-06-17 Completed Universit y of 00:00:00 [facility] DTAP 2006-06-17 Completed University of 00:00:00 [facility] HEPATITIS A 2006-06-17 Completed University of 00:00:00 [facility] MMR 2006-06-17 Completed University of 00:00:00 [facility] Branch Polio (IPV/OPV) 2006-06-17 Completed Universit y of 00:00:00 [facility] DTAP 2006-06-17 Completed University of 00:00:00 [facility] HEPATITIS A 2006-06-17 Completed University of 00:00:00 [facility] MMR 2006-06-17 Completed University of 00:00:00 [facility] Branch Polio (IPV/OPV) 2006-06-17 Completed Universit y of 00:00:00 [facility] Branch DTAP 2006-06-17 Completed University of 00:00:00 [facility] HEPATITIS A 2006-06-17 Completed University of 00:00:00 [facility] MMR 2006-06-17 Completed University of 00:00:00 [facility] Branch Polio (IPV/OPV) 2006-06-17 Completed Universit y of 00:00:00 [facility] HEPATITIS A 2005-05-08 Completed University of 00:00:00 [facility] Pneumococcal 13 2005-05-08 Completed Universit y of Conjugate, PCV13 00:00:00 [place] [facility] (Prevnar 13) Branch HEPATITIS A 2005-05-08 Completed University of 00:00:00 [facility] Branch Pneumococcal 13 2005-05-08 Completed Universit y of Conjugate, PCV13 00:00:00 [place] [facility] (Prevnar 13) Branch HEPATITIS A 2005-05-08 Completed University of 00:00:00 [facility] Branch Pneumococcal 13 2005-05-08 Completed Universit y of Conjugate, PCV13 00:00:00 [place] [facility] (Prevnar 13) Branch HEPATITIS A 2005-05-08 Completed University of 00:00:00 [facility] Branch Pneumococcal 13 2005-05-08 Completed Universit y of Conjugate, PCV13 00:00:00 [place] [facility] (Prevnar 13) Branch HEPATITIS A 2005-05-08 Completed University of 00:00:00 [facility] Branch Pneumococcal 13 2005-05-08 Completed Universit y of Conjugate, PCV13 00:00:00 [place] [facility] (Prevnar 13) Branch HEPATITIS A 2005-05-08 Completed University of 00:00:00 [facility] Branch Pneumococcal 13 2005-05-08 Completed Universit y of Conjugate, PCV13 00:00:00 [place] [facility] (Prevnar 13) Branch HEPATITIS A 2005-05-08 Completed University of 00:00:00 [facility] Branch Pneumococcal 13 2005-05-08 Completed Universit y of Conjugate, PCV13 00:00:00 [place] [facility] (Prevnar 13) Branch HEPATITIS A 2005-05-08 Completed University of 00:00:00 [facility] Branch Pneumococcal 13 2005-05-08 Completed Universit y of Conjugate, PCV13 00:00:00 [place] [facility] (Prevnar 13) Branch HEPATITIS A 2005-05-08 Completed University of 00:00:00 [facility] Branch Pneumococcal 13 2005-05-08 Completed Universit y of Conjugate, PCV13 00:00:00 [place] [facility] (Prevnar 13) Branch HEPATITIS A 2005-05-08 Completed University of 00:00:00 [facility] Branch Pneumococcal 13 2005-05-08 Completed Universit y of Conjugate, PCV13 00:00:00 [place] [facility] (Prevnar 13) Branch HEPATITIS A 2005-05-08 Completed University of 00:00:00 [facility] Branch Pneumococcal 13 2005-05-08 Completed Universit y of Conjugate, PCV13 00:00:00 [place] [facility] (Prevnar 13) Branch HEPATITIS A 2005-05-08 Completed University of 00:00:00 [facility] Pneumococcal 13 2005-05-08 Completed Universit y of Conjugate, PCV13 00:00:00 [facility] dical (Prevnar 13) Branch DTAP 2003-01-10 Completed University of 00:00:00 [facility] HIB 4 Dose Schedule 2003-01-10 Completed Unive rsity of 00:00:00 [facility] MMR 2003-01-10 Completed University of 00:00:00 [facility] Polio (IPV/OPV) 2003-01-10 Completed Universit y of 00:00:00 [facility] Varicella 2003-01-10 Completed University of (varivax)(chicken 00:00:00 [place] [facility] pox) Branch DTAP 2003-01-10 Completed University of 00:00:00 [facility] HIB 4 Dose Schedule 2003-01-10 Completed Unive rsity of 00:00:00 [facility] MMR 2003-01-10 Completed University of 00:00:00 [facility] Polio (IPV/OPV) 2003-01-10 Completed Universit y of 00:00:00 [facility] Varicella 2003-01-10 Completed University of (varivax)(chicken 00:00:00 [place] [facility] pox) Branch DTAP 2003-01-10 Completed University of 00:00:00 [facility] HIB 4 Dose Schedule 2003-01-10 Completed Unive rsity of 00:00:00 [facility] MMR 2003-01-10 Completed University of 00:00:00 [facility] Polio (IPV/OPV) 2003-01-10 Completed Universit y of 00:00:00 [facility] Varicella 2003-01-10 Completed University of (varivax)(chicken 00:00:00 [place] [facility] pox) Branch DTAP 2003-01-10 Completed University of 00:00:00 [facility] HIB 4 Dose Schedule 2003-01-10 Completed Unive rsity of 00:00:00 [facility] MMR 2003-01-10 Completed University of 00:00:00 [facility] Polio (IPV/OPV) 2003-01-10 Completed Universit y of 00:00:00 [facility] Varicella 2003-01-10 Completed University of (varivax)(chicken 00:00:00 [place] [facility] pox) Branch DTAP 2003-01-10 Completed University of 00:00:00 [facility] HIB 4 Dose Schedule 2003-01-10 Completed Unive rsity of 00:00:00 [facility] MMR 2003-01-10 Completed University of 00:00:00 [facility] Polio (IPV/OPV) 2003-01-10 Completed Universit y of 00:00:00 [facility] Varicella 2003-01-10 Completed [facility] (varivax)(chicken 00:00:00 [place] [facility] DTAP 2003-01-10 Completed [facility] 00:00:00 [facility] HIB 4 Dose Schedule 2003-01-10 Completed Unive rsity of 00:00:00 [facility] MMR 2003-01-10 Completed [facility] 00:00:00 [facility] Polio (IPV/OPV) 2003-01-10 Completed Universit y [facility] 00:00:00 [facility] Varicella 2003-01-10 Completed [facility] (varivax)(chicken 00:00:00 [place] [facility] DTAP 2003-01-10 Completed [facility] 00:00:00 [facility] HIB 4 Dose Schedule 2003-01-10 Completed Unive rsity of 00:00:00 [facility] MMR 2003-01-10 Completed [facility] 00:00:00 [facility] Polio (IPV/OPV) 2003-01-10 Completed Universit [facility] 00:00:00 [facility] Varicella 2003-01-10 Completed [facility] (varivax)(chicken 00:00:00 [place] [facility] DTAP 2003-01-10 Completed [facility] 00:00:00 [facility] HIB 4 Dose Schedule 2003-01-10 Completed Unive rsity of 00:00:00 [facility] MMR 2003-01-10 Completed [facility] 00:00:00 [facility] Polio (IPV/OPV) 2003-01-10 Completed [facility]it [facility] 00:00:00 [facility] Varicella 2003-01-10 Completed [facility] (varivax)(chicken 00:00:00 [place] [facility] DTAP 2003-01-10 Completed [facility] 00:00:00 [facility] HIB 4 Dose Schedule 2003-01-10 Completed Unive rsity of 00:00:00 [facility] MMR 2003-01-10 Completed [facility] 00:00:00 [facility] Polio (IPV/OPV) 2003-01-10 Completed [facility]it y [facility] 00:00:00 [facility] Varicella 2003-01-10 Completed [facility] (varivax)(chicken 00:00:00 [place] [facility] DTAP 2003-01-10 Completed [facility] 00:00:00 [facility] HIB 4 Dose Schedule 2003-01-10 Completed Unive rsity of 00:00:00 [facility] MMR 2003-01-10 Completed [facility] 00:00:00 [facility] Polio (IPV/OPV) 2003-01-10 Completed Universit [facility] 00:00:00 [facility] Varicella 2003-01-10 Completed [facility] (varivax)(chicken 00:00:00 [place] [facility] DTAP 2003-01-10 Completed [facility] 00:00:00 [facility] HIB 4 Dose Schedule 2003-01-10 Completed Unive rsity of 00:00:00 [facility] MMR 2003-01-10 Completed [facility] 00:00:00 [facility] Polio (IPV/OPV) 2003-01-10 Completed [facility]it [facility] 00:00:00 [facility] Varicella 2003-01-10 Completed [facility] (varivax)(chicken 00:00:00 [place] [facility] DTAP 2003-01-10 Completed [facility] 00:00:00 [facility] HIB 4 Dose Schedule 2003-01-10 Completed Unive rsity of 00:00:00 [facility] MMR 2003-01-10 Completed [facility] 00:00:00 [facility] Polio (IPV/OPV) 2003-01-10 Completed Universit y [facility] 00:00:00 [facility] Varicella 2003-01-10 Completed [facility] (varivax)(chicken 00:00:00 [place] [facility] DTAP 2002-06-21 Completed [facility] 00:00:00 [facility] HIB 4 Dose Schedule 2002-06-21 Completed Unive rsity of 00:00:00 [facility] Hep B, Adol or Pedi 2002-06-21 Completed Unive rsity of Dosage 00:00:00 [facility] DTAP 2002-06-21 Completed [facility] 00:00:00 [facility] HIB 4 Dose Schedule 2002-06-21 Completed Unive rsity of 00:00:00 [facility] Hep B, Adol or Pedi 2002-06-21 Completed Unive rsity of Dosage 00:00:00 [facility] DTAP 2002-06-21 Completed [facility] 00:00:00 [facility] HIB 4 Dose Schedule 2002-06-21 Completed Unive rsity of 00:00:00 [facility] Hep B, Adol or Pedi 2002-06-21 Completed Unive rsity of Dosage 00:00:00 [facility] DTAP 2002-06-21 Completed [facility] 00:00:00 [facility] HIB 4 Dose Schedule 2002-06-21 Completed Unive rsity of 00:00:00 [facility] Hep B, Adol or Pedi 2002-06-21 Completed Unive rsity of Dosage 00:00:00 [facility] DTAP 2002-06-21 Completed [facility] 00:00:00 [facility] HIB 4 Dose Schedule 2002-06-21 Completed Unive rsity of 00:00:00 [facility] Hep B, Adol or Pedi 2002-06-21 Completed Unive rsity of Dosage 00:00:00 [facility] DTAP 2002-06-21 Completed [facility] 00:00:00 [facility] HIB 4 Dose Schedule 2002-06-21 Completed Unive rsity of 00:00:00 [facility] Hep B, Adol or Pedi 2002-06-21 Completed Unive rsity of Dosage 00:00:00 [facility] DTAP 2002-06-21 Completed [facility] 00:00:00 [facility] HIB 4 Dose Schedule 2002-06-21 Completed Unive rsity of 00:00:00 [facility] Hep B, Adol or Pedi 2002-06-21 Completed Unive rsity of Dosage 00:00:00 [facility] DTAP 2002-06-21 Completed [facility] 00:00:00 [facility] HIB 4 Dose Schedule 2002-06-21 Completed Unive rsity of 00:00:00 [facility] Hep B, Adol or Pedi 2002-06-21 Completed Unive rsity of Dosage 00:00:00 [facility] DTAP 2002-06-21 Completed [facility] 00:00:00 [facility] HIB 4 Dose Schedule 2002-06-21 Completed Unive rsity of 00:00:00 [facility] Hep B, Adol or Pedi 2002-06-21 Completed Unive rsity of Dosage 00:00:00 [facility] DTAP 2002-06-21 Completed [facility] 00:00:00 [facility] HIB 4 Dose Schedule 2002-06-21 Completed Unive rsity of 00:00:00 [facility] Hep B, Adol or Pedi 2002-06-21 Completed Unive rsity of Dosage 00:00:00 [facility] DTAP 2002-06-21 Completed [facility] 00:00:00 [facility] HIB 4 Dose Schedule 2002-06-21 Completed Unive rsity of 00:00:00 [facility] Hep B, Adol or Pedi 2002-06-21 Completed Unive rsity of Dosage 00:00:00 [facility] DTAP 2002-06-21 Completed [facility] 00:00:00 [facility] HIB 4 Dose Schedule 2002-06-21 Completed Unive rsity of 00:00:00 [facility] Hep B, Adol or Pedi 2002-06-21 Completed Unive rsity of Dosage 00:00:00 [facility] DTAP 2002-04-07 Completed [facility] of 00:00:00 [facility] HIB 4 Dose Schedule 2002-04-07 Completed Unive rsity of 00:00:00 [facility] Polio (IPV/OPV) 2002-04-07 Completed [facility]it [facility] 00:00:00 [facility] DTAP 2002-04-07 Completed [facility] 00:00:00 [facility] HIB 4 Dose Schedule 2002-04-07 Completed Unive rsity of 00:00:00 [facility] Polio (IPV/OPV) 2002-04-07 Completed [facility]it [facility] 00:00:00 [facility] DTAP 2002-04-07 Completed [facility] 00:00:00 [facility] HIB 4 Dose Schedule 2002-04-07 Completed Unive rsity of 00:00:00 [facility] Polio (IPV/OPV) 2002-04-07 Completed [facility]it [facility] 00:00:00 [facility] DTAP 2002-04-07 Completed [facility] 00:00:00 [facility] HIB 4 Dose Schedule 2002-04-07 Completed Unive rsity of 00:00:00 [facility] Polio (IPV/OPV) 2002-04-07 Completed [facility] 00:00:00 [facility] DTAP 2002-04-07 Completed [facility] 00:00:00 [facility] HIB 4 Dose Schedule 2002-04-07 Completed Unive rsity of 00:00:00 [facility] Polio (IPV/OPV) 2002-04-07 Completed Universit [facility] 00:00:00 [facility] DTAP 2002-04-07 Completed [facility] 00:00:00 [facility] HIB 4 Dose Schedule 2002-04-07 Completed Unive rsity of 00:00:00 [facility] Polio (IPV/OPV) 2002-04-07 Completed [facility]it [facility] 00:00:00 [facility] DTAP 2002-04-07 Completed [facility] 00:00:00 [facility] HIB 4 Dose Schedule 2002-04-07 Completed Unive rsity of 00:00:00 [facility] Polio (IPV/OPV) 2002-04-07 Completed [facility] 00:00:00 [facility] DTAP 2002-04-07 Completed [facility] 00:00:00 [facility] HIB 4 Dose Schedule 2002-04-07 Completed Unive rsity of 00:00:00 [facility] Polio (IPV/OPV) 2002-04-07 Completed [facility] 00:00:00 [facility] DTAP 2002-04-07 Completed [facility] 00:00:00 [facility] HIB 4 Dose Schedule 2002-04-07 Completed Unive rsity of 00:00:00 [facility] Polio (IPV/OPV) 2002-04-07 Completed [facility] 00:00:00 [facility] DTAP 2002-04-07 Completed [facility] 00:00:00 [facility] HIB 4 Dose Schedule 2002-04-07 Completed Unive rsity of 00:00:00 [facility] Polio (IPV/OPV) 2002-04-07 Completed [facility] 00:00:00 [facility] DTAP 2002-04-07 Completed [facility] 00:00:00 [facility] HIB 4 Dose Schedule 2002-04-07 Completed Unive rsity of 00:00:00 [facility] Polio (IPV/OPV) 2002-04-07 Completed [facility] 00:00:00 [facility] DTAP 2002-04-07 Completed [facility] 00:00:00 [facility] HIB 4 Dose Schedule 2002-04-07 Completed Unive rsity of 00:00:00 [facility] Polio (IPV/OPV) 2002-04-07 Completed [facility] 00:00:00 [facility] DTAP 2002-02-07 Completed [facility] 00:00:00 [facility] HIB 4 Dose Schedule 2002-02-07 Completed Unive rsity of 00:00:00 [facility] Hep B, Adol or Pedi 2002-02-07 Completed Unive rsity of Dosage 00:00:00 [facility] Polio (IPV/OPV) 2002-02-07 Completed [facility] 00:00:00 [facility] DTAP 2002-02-07 Completed [facility] 00:00:00 [facility] HIB 4 Dose Schedule 2002-02-07 Completed Unive rsity of 00:00:00 [facility] Hep B, Adol or Pedi 2002-02-07 Completed Unive rsity of Dosage 00:00:00 [facility] Polio (IPV/OPV) 2002-02-07 Completed [facility] 00:00:00 [facility] DTAP 2002-02-07 Completed [facility] 00:00:00 [facility] HIB 4 Dose Schedule 2002-02-07 Completed Unive rsity of 00:00:00 [facility] Hep B, Adol or Pedi 2002-02-07 Completed Unive rsity of Dosage 00:00:00 [facility] Polio (IPV/OPV) 2002-02-07 Completed [facility] 00:00:00 [facility] DTAP 2002-02-07 Completed [facility] 00:00:00 [facility] HIB 4 Dose Schedule 2002-02-07 Completed Unive rsity of 00:00:00 [facility] Hep B, Adol or Pedi 2002-02-07 Completed Unive rsity of Dosage 00:00:00 [facility] Polio (IPV/OPV) 2002-02-07 Completed [facility] 00:00:00 [facility] DTAP 2002-02-07 Completed [facility] 00:00:00 [facility] HIB 4 Dose Schedule 2002-02-07 Completed Unive rsity of 00:00:00 [facility] Hep B, Adol or Pedi 2002-02-07 Completed Unive rsity of Dosage 00:00:00 [facility] Polio (IPV/OPV) 2002-02-07 Completed [facility] 00:00:00 [facility] DTAP 2002-02-07 Completed [facility] 00:00:00 [facility] HIB 4 Dose Schedule 2002-02-07 Completed Unive rsity of 00:00:00 [facility] Hep B, Adol or Pedi 2002-02-07 Completed Unive rsity of Dosage 00:00:00 [facility] Polio (IPV/OPV) 2002-02-07 Completed Universit y of 00:00:00 [facility] DTAP 2002-02-07 Completed [facility] 00:00:00 [facility] HIB 4 Dose Schedule 2002-02-07 Completed Unive rsity of 00:00:00 [facility] Hep B, Adol or Pedi 2002-02-07 Completed Unive rsity of Dosage 00:00:00 [facility] Polio (IPV/OPV) 2002-02-07 Completed [facility]it [facility] 00:00:00 [facility] DTAP 2002-02-07 Completed [facility] 00:00:00 [facility] HIB 4 Dose Schedule 2002-02-07 Completed Unive rsity of 00:00:00 [facility] Hep B, Adol or Pedi 2002-02-07 Completed Unive rsity of Dosage 00:00:00 [facility] Polio (IPV/OPV) 2002-02-07 Completed Universit y [facility] 00:00:00 [facility] DTAP 2002-02-07 Completed [facility] 00:00:00 [facility] HIB 4 Dose Schedule 2002-02-07 Completed Unive rsity of 00:00:00 [facility] Hep B, Adol or Pedi 2002-02-07 Completed Unive rsity of Dosage 00:00:00 [facility] Polio (IPV/OPV) 2002-02-07 Completed Universit y of 00:00:00 [facility] DTAP 2002-02-07 Completed [facility] 00:00:00 [facility] HIB 4 Dose Schedule 2002-02-07 Completed Unive rsity of 00:00:00 [facility] Hep B, Adol or Pedi 2002-02-07 Completed Unive rsity of Dosage 00:00:00 [facility] Polio (IPV/OPV) 2002-02-07 Completed [facility] of 00:00:00 [facility] DTAP 2002-02-07 Completed [facility] 00:00:00 [facility] HIB 4 Dose Schedule 2002-02-07 Completed Unive rsity of 00:00:00 [facility] Hep B, Adol or Pedi 2002-02-07 Completed Unive rsity of Dosage 00:00:00 [facility] Polio (IPV/OPV) 2002-02-07 Completed Universit y of 00:00:00 [facility] DTAP 2002-02-07 Completed [facility] 00:00:00 [facility] HIB 4 Dose Schedule 2002-02-07 Completed Unive rsity of 00:00:00 [facility] Hep B, Adol or Pedi 2002-02-07 Completed Unive rsity of Dosage 00:00:00 [facility] Polio (IPV/OPV) 2002-02-07 Completed Universit y of 00:00:00 [facility] Hep B, Adol or Pedi 2001 Completed Unive rsity of Dosage 00:00:00 [facility] Hep B, Adol or Pedi 2001 Completed Unive rsity of Dosage 00:00:00 [facility] Hep B, Adol or Pedi 2001 Completed Unive rsity of Dosage 00:00:00 [facility] Hep B, Adol or Pedi 2001 Completed Unive rsity of Dosage 00:00:00 [facility] Hep B, Adol or Pedi 2001 Completed Unive rsity of Dosage 00:00:00 [facility] Hep B, Adol or Pedi 2001 Completed Unive rsity of Dosage 00:00:00 [facility] Hep B, Adol or Pedi 2001 Completed Unive rsity of Dosage 00:00:00 [facility] Hep B, Adol or Pedi 2001 Completed Unive rsity of Dosage 00:00:00 [facility] Hep B, Adol or Pedi 2001 Completed Unive rsity of Dosage 00:00:00 [facility] Hep B, Adol or Pedi 2001 Completed Unive rsity of Dosage 00:00:00 [facility] Hep B, Adol or Pedi 2001 Completed Unive rsity of Dosage 00:00:00 [facility] Hep B, Adol or Pedi 2001 Completed Unive rsity of Dosage 00:00:00 [facility] Vital Signs Vital Name Observation Time Observation Value Comments Source Systolic blood 2022-07-01 19:58:00 127 mm[Hg] Univer sity of pressure [facility] Diastolic blood 2022-07-01 19:58:00 70 mm[Hg] Unive rsity [facility] Heart rate 2022-07-01 19:58:00 84 /min [facility] Body temperature 2022-07-01 19:58:00 36.5 [facility] rate 2022-07-01 19:58:00 16 /min [facility] Body height 2022-07-01 19:58:00 175.3 cm [facility] Body weight 2022-07-01 19:58:00 113.535 kg [facility] BMI 2022-07-01 19:58:00 36.96 kg/m2 [facility] Procedures Procedure Date / Time Performed Performing Clinician [facility] e ASSIGNMENT OF BENEFITS 2022-07-01 19:43:07 Doctor Unassigned, No [facility] Encounters Start End Encounter Admission Attending Care Care Encounter Source Date/Time Date/Time Type Type Clinicians Facility Department ID 2022-08-04 2022-08-04 Telemedici [facility] 1.2.840.1 [id number] Univers 15:50:00 16:10:00 ne Visit , Ansley SERRATO 350.1.13.10 i ty of PEDIATRIC 4.2.7.2.686 Te [facility] [id number] [address] 2022-08-04 2022-08-04 Outpatient R [facility] [id number] Univers 15:50:00 15:50:00 , ANSLEY tran [facility] 2022-08-04 2022-08-04 Outpatient R [facility] [id number] Univers 13:50:00 13:50:00 , ANSLEY tran [facility] 2022-08-03 2022-08-03 Telephone [facility] 1.2.840.11 [id number] Univers 00:00:00 00:00:00 , Ansley SERRATO 350.1.13.10 it [facility] [id number] [address] 2022-07-10 2022-07-10 [facility] [id number] Univers 13:00:00 13:00:00 SALAS tran [facility] 2022-07-02 2022-07-02 Telephone [facility] 1.2.840.11 [id number] Univers 00:00:00 00:00:00 , Ansley SERRATO 350.1.13.10 it y [facility] [id number] [address] 2022-07-01 2022-07-01 Outpatient R [facility] [id number] Univers 15:10:00 15:59:43 , ANSLEY tran [facility] 2022-07-01 2022-07-01 Office [facility] 1.2.840.114 [id number] Univers 15:10:00 15:59:43 Visit , Ansley SERRATO 350.1.13.10 it y [facility] [id number] [address] 2022-07-01 2022-07-01 Orders Doctor GISSELLE 1.2.840.114 [id number] Univers 00:00:00 00:00:00 Only Unassigned, KIRA 350.1.13.10 ity of [facility] 4.2.7.2.686 [place] as [id number] [address] 2022-06-15 2022-06-15 Telephone [facility] 1.2.840.11 [id number] Univers 00:00:00 00:00:00 , Ansley SERRATO 350.1.13.10 it y [facility] [id number] [address] 2022-05-12 2022-05-12 Telephone Wilmer Handy [facility] 1.2.840.114 [id number] Univers 00:00:00 00:00:00 ROJELIO 350.1.13.10 it y [facility]7.2.[facility] [id number] [address] 2022-04-07 2022-04-07 Outpatient R [facility] [id number] Univers 15:30:00 16:00:38 , ANSLEY tran [facility] 2022-04-07 2022-04-07 Telemedici [facility] 1.2.840.1 [id number] Univers 15:30:00 16:00:38 ne Visit , Ansley SERRATO 350.1.13.10 i ty [facility] [id number] [address] 2022-04-07 2022-04-07 Refill [facility] 1.2.840.114 [id number] Univers 00:00:00 00:00:00 , Ansley SERRATO 350.1.13.10 it y [facility] [id number] [address] 2022-04-07 2022-04-07 Refill [facility] 1.2.840.114 [id number] Univers 00:00:00 00:00:00 , Ansley SERRATO 350.1.13.10 it y [facility]7.2.[facility] [id number] [address] 2022-03-11 2022-03-11 Outpatient R [facility] [id number] Univers 12:30:00 12:30:00 , ANSLEY tran [facility] 2022-03-02 2022-03-02 Telephone [facility] 1.2.840.11 [id number] Univers 00:00:00 00:00:00 , Ansley SERRATO 350.1.13.10 it y [facility]7.[facility] [id number] [address] 2022-02-27 2022-02-27 Telephone [facility] 1.2.840.11 [id number] Univers 00:00:00 00:00:00 , Ansley SERRATO 350.1.13.10 it y [facility]7.2.[facility] [id number] [address] 2022-02-18 2022-02-18 Refill [facility] 1.2.840.114 [id number] Univers 00:00:00 00:00:00 , Ansley SERRATO 350.1.13.10 it y [facility]7.2.[facility] [id number] [address] 2022-02-13 2022-02-13 Outpatient R [facility] [id number] Univers 10:10:00 10:10:00 , ANSLEY tran [facility] 2022-01-20 2022-01-20 Telephone [facility] 1.2.840.11 [id number] Univers 00:00:00 00:00:00 , Ansley SERRATO 350.1.13.10 it y [facility]7.[facility] [id number] [address] 2022-01-19 2022-01-19 Office [facility] 1.2.840.114 [id number] Univers 12:50:00 13:48:42 Visit , Ansley SERRATO 350.1.13.10 it y [facility]7.2.[facility] [id number] [address] 2022-01-19 2022-01-19 Outpatient R [facility] [id number] Univers 12:50:00 13:48:42 , ANSLEY tran [facility] 2022-01-19 2022-01-19 Outpatient R [facility] [id number] Univers 12:50:00 12:50:00 , ANSLEY tran [facility] 2022-01-19 2022-01-19 Letter [facility] 1.2.840.114 [id number] Univers 00:00:00 00:00:00 (Out) , Ansley SERRATO 350.1.13.10 it y [facility] [id number] [address] 2022-01-15 2022-01-15 Refill [facility] 1.2.840.114 [id number] Univers 00:00:00 00:00:00 , Ansley SERRATO 350.1.13.10 it y [facility]7.2.[facility] [id number] [address] 2021-12-09 2021-12-09 Office [facility] 1.2.840.114 [id number] Univers 08:30:00 09:18:10 Visit , Ansley SERRATO 350.1.13.10 it y [facility]7.2.[facility] [id number] [address] 2021-12-09 2021-12-09 Outpatient R [facility] [id number] Univers 08:30:00 09:18:10 , ANSLEY tran [facility] 2021-12-09 2021-12-09 Outpatient R [facility] [id number] Univers 08:30:00 08:30:00 , ANSLEY tran [facility] 2021-12-09 2021-12-09 Outpatient R [facility] [id number] Univers 08:30:00 08:30:00 , ANSLEY tran [facility] 2021-12-09 2021-12-09 Letter [facility] 1.2.840.114 [id number] Univers 00:00:00 00:00:00 (Out) , Ansley SERRATO 350.1.13.10 it y [facility]7.2.[facility] [id number] [address] 2021-12-09 2021-12-09 Telephone [facility] 1.2.840.11 [id number] Univers 00:00:00 00:00:00 , Ansley SERRATO 350.1.13.10 it y [facility] [id number] [address] 2021 2021 Outpatient Arnaud KIM [facility] [id number] Univers 09:30:00 10:11:31 JHON tran [facility] 2021 2021 Office [facility] 1.2.840.114 [id number] Univers 09:30:00 10:11:31 Visit Jhon KimPEC 350.1.13.1 0 ity of IALTY 4.2.7.2.686 [facility] [place] [id number] [address] [facility] 2021 2021 [facility] [id number] Univers 09:30:00 10:11:31 JHON tran [facility] 2021 2021 Office [facility] 1.2.840.114 [id number] [facility] 09:30:00 10:11:31 Visit Jhon KimPEC 350.1.13.1 0 ity of IALTY 4.2.7.2.686 [facility] [id number] [address] [facility] 2021 2021 [facility] [id number] Univers 09:30:00 10:11:31 JHON tran [facility] 2021 2021 [facility] 1.2.840.114 [id number] Univers 00:00:00 00:00:00 (Out) Matheus RECINOS 350.1.13.10 ity of IALTY 4.2.7.2.686 [facility] [id number] [address] [facility] 2021-11-24 2021-11-24 Outpatient R [facility] [id number] Univers 09:30:00 09:30:00 ANSLEY [facility] 2021-11-24 2021-11-24 Patient [facility] BOLANOS 1.2.840.114 [id number] Univers 00:00:00 00:00:00 Secure Ansley Mendieta 350.1.13.10 [place] [id number] [facility] [address] 2021-11-07 2021-11-07 Outpatient R STIVEN [facility] [id number] Univers 10:30:00 10:30:00 ROCKY [facility] 2021-11-07 2021-11-07 Patient Jean[facility] 1.2.840.114 [id number] Univers 00:00:00 00:00:00 Secure Msg Christinaphilip [facility] 350.1.13.10 ity of [facility] [place].2.[place] [id number] [address] [facility]INIC 2021-11-06 2021-11-06 Office ED Choudhary 1.2.272.847 [id number] Univers 10:00:00 11:27:58 Visit [facility] 350.1.13.10 i ty of [facility] [place] [id number] [address] 2021-11-06 2021-11-06 Outpatient R KENRICK [facility] [id number] Univers 10:00:00 11:27:58 [facility] 2021-11-06 2021-11-06 [facility] [id number] Univers 10:00:00 10:00:00 [facility] 2021-11-06 2021-11-06 Letter Kenrick [facility] 1.2.130.837 [id number] Univers 00:00:00 00:00:00 (Out) [facility] 350.1.13.10 i ty of [facility] [id number] [address] 2021-11-04 2021-11-04 Telephone PAWAN Saleem 1.2.840.114 [id number] Univers 00:00:00 00:00:00 [facility] 350.1.13.10 i ty of CLINICS [place] [id number] [place] [address] [address] 2021-11-01 2021-11-01 Telephone Susie [facility] 1.2.840.11 4 [id number] Univers 00:00:00 00:00:00 , Ansley SERRATO 350.1.13.10 it [place] [id number] [address] 2021-10-27 2021-10-27 [facility] 1.2.840.114 [id number] Univers 00:00:00 00:00:00 , Ansley SERRATO 350.1.13.10 it [place] [id number] [address] 2021-09-28 2021-09-28 [facility] 1.2.840.114 [id number] [facility] 00:00:00 00:00:00 , Ansley SERRATO 350.1.13.10 it [place] [id number] [address] 2021-09-27 2021-09-27 Telephone Wilmer Handy [facility] 1.2.840.114 [id number] Univers 00:00:00 00:00:00 ROJELIO 350.1.13.10 it [place] [id number] [address] 2021-09-04 2021-09-04 Telephone [facility] 12.840.11 4 [id number] Univers 00:00:00 00:00:00 , Ansley SERRATO 350.1.13.10 it [place] [id number] [address] 2021-08-26 2021-08-26 Outpatient R DE [facility] [id number] Univers 10:40:00 11:05:56 marc ESTRELLA of [facility] 2021-08-26 2021-08-26 Office de [facility] 1.2.783.045 [id number] Univers 10:31:35 11:05:56 Visit ROJELIO Estrella 350.1.13.[address] [facility] [place] [id number] [address] 2021-08-19 2021-08-19 Outpatient R DE [facility] [id number] Univers 12:15:00 12:15:00 marc ESTRELLA of [facility] 2021-08-19 2021-08-19 Billing de [facility] 1.2.791.035 [id number] Univers 10:50:00 11:05:00 Encounter ROJELIO Estrella 350.1.13.10 [place] [facility] [id number] [address] 2021-08-19 2021-08-19 Outpatient R DE [facility] [id number] Univers 09:00:00 09:44:20 marc ESTRELLA of [facility] 2021-08-19 2021-08-19 Outpatient R DE [facility] [id number] Univers 09:00:00 09:44:20 marc ETSRELLA of [facility] 2021-08-19 2021-08-19 Outpatient R DE [facility] [id number] Univers 09:00:00 09:44:20 marc ESTRELLA of [facility] 2021-08-19 2021-08-19 Office de [facility] 1.2.596.405 [id number] Univers 08:46:25 09:44:20 Visit ROJELIO Estrella 350.1.13.10 [place] [facility] [id number] [address] 2021-08-19 2021-08-19 Letter [place] [place] 1.2.840.114 [id number] Univers 00:00:00 00:00:00 (Out) , Ansley SERRATO 350.1.13.10 it y [place] [facility] [id number] [address] 2021-08-19 2021-08-19 Refill de [facility] 1.2.806.440 [id number] Univers 00:00:00 00:00:00 ROJELIO Estrella 350.1.13.10 [place] [facility] [id number] [address] 2021-06-27 2021-06-27 Outpatient R [facility] [id number] Univers 13:50:00 13:50:00 , ANSLEY tran of [facility] 2021-06-27 2021-06-27 Telemedici [facility] 1.2.840.1 14 [id number] Univers 13:08:16 13:28:16 ne Visit , Ansley Serrato 350.1.13.10 i ty of [place] [facility] [id number] [address] 2021-06-27 2021-06-27 Telephone [facility] 1.2.840.11 [id number] Univers 00:00:00 00:00:00 , Ansley Serrato 350.1.13.10 it y [place] [facility] [id number] [address] 2021-05-30 2021-05-30 Nurse Kathia PITTS 1.2.840.114 [id number] Univers 00:00:00 00:00:00 Triage KIRA Begum 350.1.13.10 ity [facility] 4.2.7.2.686 [place] [phone] [place] [address] [address] 2021-05-26 2021-05-26 Office [facility] 1.2.840.114 [id number] Univers 13:20:27 14:19:39 Visit , Ansley Serrato 350.1.13.10 it y [place].2.[place] [facility] [id number] [address] 2021-05-26 2021-05-26 Outpatient R [facility] [id number] Univers 13:30:00 13:30:00 , ANSLEY tran of [facility] 2021-05-26 2021-05-26 Orders Doctor PITTS 1.2.840.114 [id number] Univers 00:00:00 00:00:00 Only UnassignedKIRA 350.1.13.10 ity of [facility] 4.2.7.2.686 Cast[place] as [phone] [facility] [address] 2021-05-26 2021-05-26 Letter [facility] 1.2.840.114 [id number] Univers 00:00:00 00:00:00 (Out) , Ansley Serrato 350.1.13.10 it y [place].2.[place] [facility] [id number] [address] 2021-05-26 2021-05-26 Orders Doctor GISSELLE 1.2.840.114 [id number] Univers 00:00:00 00:00:00 Only Unassigned, KIRA 350.1.13.10 ity of [place] [facility] 4.2.7.2.686 Castillo as [id number] [address] 2021-05-26 2021-05-26 Letter [facility] 1.2.840.114 [id number] Univers 00:00:00 00:00:00 (Out) , Ansley Serrato 350.1.13.10 it y [place].2.[place] [facility] [id number] [address] 2021-05-20 2021-05-20 Patient [facility] 1.2.840.114 [id number] Univers 00:00:00 00:00:00 Secure Ansley Mendieta 350.1.13.10 ity [place].2.[place] [facility] [id number] [address] 2021-05-20 2021-05-20 Patient [facility] 1.2.840.114 [id number] Univers 00:00:00 00:00:00 Secure Ansley Mendieta 350.1.13.10 ity [place].2.[place] [facility] [id number] [address] 2021-05-09 2021-05-09 Kemi KIM, [facility] [id number] Univers 08:30:00 08:30:00 JHON tran of [facility] 2021-04-16 2021-04-16 Office de [facility] 1.2.917.786 [id number] Univers 11:08:37 11:21:47 Visit Rojelio Estrella 350.1.13.10 ity of [place]7.2.[place] [facility] [id number] [address] 2021-04-16 2021-04-16 Outpatient R DE [facility] [id number] Univers 11:20:00 11:20:00 nirmala ESTRELLAy of [facility] 2021-04-16 2021-04-16 Refill de [facility] 1.2.854.903 [id number] Univers 00:00:00 00:00:00 Rojelio Estrella 350.1.13.10 ity of [facility] [place].7.2.[place] [facility] [id number] [facility] [address] 2021-04-15 2021-04-15 [facility] 1.2.840.11 [id number] Univers 00:00:00 00:00:00 , Ansley Serrato 350.1.13.10 it y of [place].7.2.[place] [facility] [id number] [address] 2021-03-21 2021-03-21 Outpatient R [facility] [id number] Univers 07:30:00 07:30:00 , ANSLEY silvestrey [facility] 2021-03-19 2021-03-19 Outpatient R [facility] [id number] Univers 10:30:00 10:30:00 , ANSLEY silvestrey [facility] 2021-03-19 2021-03-19 Outpatient R [facility] [id number] Univers 10:30:00 10:30:00 , ANSLEY tran [facility] 2021-03-14 2021-03-14 [facility] 1.2.840.114 [id number] Univers 13:45:34 23:59:00 Encounter , Ansley Finn 350.1.13.10 ity of [place] 4.2.7.2.686 [facility] [id number] [facility] [address] 2021-03-14 2021-03-14 Outpatient R [facility] [id number] Univers 00:00:00 00:00:00 , ANSLEY tran [facility] 2021-03-14 2021-03-14 Orders Doctor PITTS 1.2.840.114 [id number] Univers 00:00:00 00:00:00 Only Unassigned, KIRA 350.1.13.10 ity of [facility] 4.2.7.2.686 [place] as [id number] [facility] [address] 2021-03-12 2021-03-12 Office [facility] 1.2.840.114 [id number] Univers 09:57:19 10:49:35 Visit , Ansley Serrato 350.1.13.10 it y of [place]2.7.2.686 [place] [facility] [id number] [facility] [address] 2021-03-12 2021-03-12 Outpatient R [facility] [id number] Univers 09:50:00 09:50:00 , ANSLEY tran [facility] 2021-03-04 2021-03-04 Telephone [facility] 1.2.840.11 [id number] Univers 00:00:00 00:00:00 , Ansley Serrato 350.1.13.10 it y [place].7.2.[place] [facility] [phone] [facility] [address] 2021-01-28 2021-01-28 Outpatient [facility]ud [facility] [id number] Univers 11:40:00 11:40:00 FRAN ity of [facility] 2021-01-13 2021-01-13 Patient [facility] 1.2.840.114 [id number] Univers 00:00:00 00:00:00 Secure Msg , Ansley Serrato 350.1.13.10 ity [place].7.2.[place] [facility] [id number] [facility] [address] 2020-12-31 2020-12-31 Outpatient [facility]ud [facility] [id number] Univers 11:40:00 11:40:00 FRAN ity of [facility] 2020-12-18 2020-12-18 Refill [facility] 1.2.840.114 [id number] Univers 00:00:00 00:00:00 , Ansley Serrato 350.1.13.10 it y of [place].7.2.[place] [facility] [id number] [address] 2020-12-18 2020-12-18 Patient [facility] 1.2.840.114 [id number] Univers 00:00:00 00:00:00 Secure Msg , Ansley Serrato 350.1.13.10 ity of [facility].2.7.2.686 [facility] [id number] [address] 2020-12-18 2020-12-18 [facility] 1.2.840.114 [id number] Univers 00:00:00 00:00:00 Jhon RECINOS 350.1.13.10 ity of IALTY 4.2.7.2.686 [facility] [id number] [facility] AND [address] DIABETES CLINIC 2020-12-17 2020-12-17 Patient [facility] 1.2.840.114 [id number] Univers 00:00:00 00:00:00 Outreach Mino ENRIQEU 350.1.13.10 i ty of [facility] 4.2.7.2.686 [facility] [id number] [place] [address] 2020-11-28 2020-11-28 Telephone [facility] 1.2.840.11 4 [id number] Univers 00:00:00 00:00:00 , Ansley Serrato 350.1.13.10 it y of [place]2.7.2.[place] [facility] [id number] [address] 2020-11-21 2020-11-[address]114 8 [id number] Univers 15:38:12 23:59:00 Encounter Ansley 350.1.13.10 ity of [place] 4.2.7.2.686 [facility] [id number] [facility] [address] 2020-11-21 2020-11-21 Outpatient R [facility] [id number] Univers 00:00:00 00:00:00 , ANSLEY tran [facility] 2020-11-19 2020-11-19 Office [facility] 1.2.840.114 [id number] Univers 09:36:03 10:16:14 Visit , Ansley Serrato 350.1.13.10 it y of [place]2.7.2.686 [place] [facility] [id number] [facility] [address] 2020-11-19 2020-11-19 Outpatient R [facility] [id number] Univers 09:30:00 09:30:00 , ANSLEY tran [facility] 2020-11-19 2020-11-19 Letter Doctor PITTS 1.2.840.114 [id number] Univers 00:00:00 00:00:00 (Out) Unassigned, KIRA 350.1.13.10 [facility] 4.2.7.2.686 [place] [id number] [facility] [address] 2020-11-19 2020-11-19 Letter [facility] 1.2.840.114 [id number] Univers 00:00:00 00:00:00 (Out) , Ansley Serrato 350.1.13.10 it y of [place] 4[place]2.7.2.686 [place] [facility] [id number] [address] 2020-11-15 2020-11-15 Refill [facility] 1.2.840.114 [id number] Univers 00:00:00 00:00:00 , Ansley [facility] 350.1.13.10 it y of [place] 4.2.7.2.686 [place] as Professio [phone] [facility] [address] 2020-10-28 2020-10-28 Office Julio [facility] 1.2.840.114 [id number] Univers 14:40:30 15:13:18 Visit Jhon RECINOS 350.1.13.10 ity of IALTY 4.2.7.2.686 [facility] [id number] [facility] AND [address] DIABETES CLINIC 2020-10-28 2020-10-28 Outpatient R JLUIO [facility] [id number] Univers 15:00:00 15:00:00 JHON tran [facility] 2020-10-15 2020-10-15 Office [facility] 1.2.840.114 [id number] Univers 08:52:25 10:06:57 Visit , Ansley Serrato 350.1.13.10 it y of [place]2.7.2.686 [place] [facility] [id number] [facility] [address] 2020-10-15 2020-10-15 Office [facility] 1.2.840.114 [id number] 08:52:25 10:06:57 Visit , Ansley Serrato 350.1.13.10 Pediatric 4.2.7.2.686 Clinic [id number] [facility] 2020-10-15 2020-10-15 Outpatient R [facility] [id number] Univers 09:10:00 09:10:00 , ANSLEY tran [facility] 2020-10-15 2020-10-15 Letter Doctor GISSELLE 1.2.840.114 [id number] Univers 00:00:00 00:00:00 (Out) Unassigned, KIRA 350.1.13.10 ity of [place] [facility] 4.2.7.2.686 [facility] [phone] [facility] [address] 2020-10-15 2020-10-15 Telephone [facility] 1.2.840.11 4 [id number] Univers 00:00:00 00:00:00 , Ansley Serrato 350.1.13.10 it y of [place] 4.2.7.2.[place] [facility] [id number] [facility] [address] 2020-10-15 2020-10-15 Telephone [facility] 1.2.840.11 4 [id number] 00:00:00 00:00:00 , Ansley Serrato 350.1.13.10 Pediatric 4.2.7.2.686 Clinic [id number] [facility] 2020-10-08 2020-10-08 Outpatient R [facility] [id number] Univers 08:50:00 08:50:00 , ANSLEY tran of [facility] 2020-10-07 2020-10-07 Telephone [facility] 1.2.840.11 4 [id number] Univers 00:00:00 00:00:00 , Ansley Serrato 350.1.13.10 it y of [place] 4[place]2.7.2.686 [place] [facility] [id number] [address] 2020-09-18 2020-09-18 Refill [facility] 1.2.840.114 [id number] Univers 00:00:00 00:00:00 , Ansley Serrato 350.1.13.10 it y of [place] 4.2.7.2.686 [place] [facility] [id number] [address] 2020-09-11 2020-09-11 Telephone [facility] 1.2.840.11 4 [id number] Univers 00:00:00 00:00:00 , Ansley Serrato 350.1.13.10 it y of [place] 4.2.7.2.686 [place] [facility] [id number] [address] 2020-09-09 2020-09-09 Orders Doctor GISSELLE 1.2.840.114 [id number] Univers 00:00:00 00:00:00 Only Unassigned, KIRA 350.1.13.10 ity of [facility] 4.2.7.2.686 [place] as [id number] [address] 2020-09-03 2020-09-03 Refill [facility] 1.2.840.114 [id number] Univers 00:00:00 00:00:00 , Ansley Serrato 350.1.13.10 it y of [place] 4.2.7.2.686 [place] [facility] [id number] [address] 2020-09-03 2020-09-03 Telephone [facility] 1.2.840.11 4 [id number] Univers 00:00:00 00:00:00 , Ansley Serrato 350.1.13.10 it y of [place] 4.2.7.2.686 [place] [facility] [id number] [address] 2020-08-30 2020-08-30 Office [facility] 1.2.840.114 [id number] Univers 12:44:33 13:04:33 Visit , Ansley Serrato 350.1.13.10 it y of [place] 4.2.7.2.686 [place] [facility] [id number] [address] 2020-08-30 2020-08-30 Outpatient R [facility] [id number] Univers 12:50:00 12:50:00 , ANSLEY tran of [facility] 2020-08-28 2020-08-28 Refill [facility] 1.2.840.114 [id number] Univers 00:00:00 00:00:00 , Ansley Serrato 350.1.13.10 it y of [place] 4.2.7.2.686 [place] [facility] [id number] [address] 2020-08-28 2020-08-28 Telephone [facility] 1.2.840.11 4 [id number] Univers 00:00:00 00:00:00 , Ansley Serrato 350.1.13.10 it y of [place] 4.2.7.2.686 [place] [facility] [id number] [address] 2020-08-02 2020-08-02 Telephone [facility] 1.2.840.11 4 [id number] Univers 00:00:00 00:00:00 , Ansley Serrato 350.1.13.10 it y of [place] 4.2.7.2.686 [place] [facility] [id number] [address] 2020-07-31 2020-07-31 Office [facility] 1.2.840.114 [id number] Univers 10:22:44 11:53:55 Visit , Ansley Serrato 350.1.13.10 it y of [place] 4.2.7.2.686 [place] [facility] [id number] [address] 2020-07-31 2020-07-31 Outpatient R [facility] [id number] Univers 10:50:00 10:50:00 , ANSLEY silvestrey of [facility] 2020-07-31 2020-07-31 Telephone [facility] 1.2.840.11 4 [id number] Univers 00:00:00 00:00:00 , Ansley Serrato 350.1.13.10 it y of [place] 4.2.7.2.686 [place] [facility] [id number] [address] 2020-07-31 2020-07-31 Telephone [facility] 1.2.840.11 4 [id number] Univers 00:00:00 00:00:00 , Ansley Serrato 350.1.13.10 it y of Pediatric 4.2.7.2.686 [place] [facility] [id number] [address] 2020-07-31 2020-07-31 Orders Doctor GISSELLE 1.2.840.114 [id number] Univers 00:00:00 00:00:00 Only Unassigned, KIRA 350.1.13.10 ity of [facility] 4.2.7.2.686 [place] as [phone] [address] 2020-07-26 2020-07-26 Telephone [facility] 1.2.840.11 4 [id number] Univers 00:00:00 00:00:00 , Ansley Serrato 350.1.13.10 it y of [place] 4.2.7.2.686 [place] [facility] [id number] [address] 2020-07-24 2020-07-24 Refill [facility] 1.2.840.114 [id number] Univers 00:00:00 00:00:00 , Ansley Serrato 350.1.13.10 it y of Pediatric 4.2.7.2.686 [place] [facility] [facility] [id number] [address] 2020-07-13 2020-07-13 Refill [facility] 1.2.840.114 [id number] Univers 00:00:00 00:00:00 , Ansley Serrato 350.1.13.10 it y of [facility] 4.2.7.2.686 [facility] [id number] [address] 2020-06-20 2020-06-20 Orders Doctor GISSELLE 1.2.840.114 [id number] Univers 00:00:00 00:00:00 Only Unassigned, KIRA 350.1.13.10 ity of [facility] 4.2.7.2.686 [place] as [id number] [address] 2020-06-11 2020-06-11 Refill [facility] 1.2.840.114 [id number] Univers 00:00:00 00:00:00 , Ansley Serrato 350.1.13.10 it y of [facility].7.2.686 [facility] [id number] [address] 2020-05-29 2020-05-29 Outpatient R [facility] [id number] Univers 15:20:00 15:20:00 , ANSLEY tran [facility] 2020-05-16 2020-05-16 Outpatient R [facility] [id number] Univers 16:00:00 16:00:00 , ANSLEY marc [facility] 2020-05-16 2020-05-16 Telemedici [facility] 1.2.840.1 14 [id number] Univers 14:11:54 14:26:54 ne Visit , Ansley Serrato 350.1.13.10 i ty of Pediatric 4.2.7.2.686 [facility] [id number] [address] 2020-05-16 2020-05-16 Telephone [facility] 1.2.840.11 [id number] Univers 00:00:00 00:00:00 , Ansley Serrato 350.1.13.10 it y of Pediatric 4.2.7.2.686 [facility] [id number] [address] 2020-04-17 2020-04-17 Refill [facility] 1.2.840.114 [id number] Univers 00:00:00 00:00:00 , Ansley Serrato 350.1.13.10 it y of Pediatric 4.2.7.2.686 [facility] [id number] [address] 2020-04-17 2020-04-17 Telephone [place] 1.2.840.11 4 [id number] Univers 00:00:00 00:00:00 , Ansley Serrato 350.1.13.10 it y of Pediatric 4.2.7.2.686 [facility] [id number] [address] 2020-04-12 2020-04-12 Outpatient R [facility] [id number] Univers 10:00:00 10:00:00 , ANSLEY tran [facility] 2020-03-29 2020-03-29 Office [place] 1.2.840.114 [id number] Univers 09:30:39 10:40:57 Visit , Ansley Serrato 350.1.13.10 it y of Pediatric 4.2.7.2.686 [place] [facility] [id number] [address] 2020-03-29 2020-03-29 Outpatient [facility] [id number] Univers 09:50:00 09:50:00 , ANSLEY tran of [facility] 2020-03-25 2020-03-25 Orders Doctor GISSELLE 1.2.840.114 [id number] Univers 00:00:00 00:00:00 Only Unassigned, KIRA 350.1.13.10 ity of [facility] 4.2.7.2.686 Castillo as [phone] [address] 2020-03-15 2020-03-15 [facility] 1.2.840.1 14 [id number] Univers 10:19:05 14:57:55 ne Visit , Ansley Serrato 350.1.13.10 i ty of Pediatric 4.2.7.2.686 [facility] [id number] [address] 2020-03-15 2020-03-15 Outpatient R [facility] [id number] Univers 11:10:00 11:10:00 , ANSLEY tran [facility] 2020-03-15 2020-03-15 [facility]phone [facility] 1.2.840.11 [id number] Univers 00:00:00 00:00:00 , Ansley Serrato 350.1.13.10 it y of Pediatric 4.2.7.2.686 [facility] [phone] [address] 2020-03-14 2020-03-14 Telephone [facility] 1.2.840.11 4 [id number] Univers 00:00:00 00:00:00 , Ansley Serrato 350.1.13.10 it y of Pediatric 4.2.7.2.686 [facility] [phone] [address] 2020-03-14 2020-03-14 Refill [facility] 1.2.840.114 [id number] Univers 00:00:00 00:00:00 , Ansley Serrato 350.1.13.10 it y of Pediatric 4.2.7.2.686 [facility] [phone] [address] 2020-03-11 2020-03-11 Orders Doctor GISSELLE 1.2.840.114 [id number] Univers 00:00:00 00:00:00 Only Unassigned, KIRA 350.1.13.10 ity of [facility] 4.2.7.2.686 Castillo as [id number] [address] 2020-02-29 2020-02-29 Telephone [facility] 1.2.840.11 4 [id number] Univers 00:00:00 00:00:00 , Ansley Serrato 350.1.13.10 it y of Pediatric 4.2.7.2.686 [facility] [phone] [address] 2020-02-05 2020-02-05 Refill [facility] 1.2.840.114 [id number] Univers 00:00:00 00:00:00 , Ansley Serrato 350.1.13.10 it y of Pediatric 4.2.7.2.686 [facility] [phone] [address] 2019-12-26 2019-12-26 Telemedici [facility] 1.2.840.1 14 [id number] Univers 12:26:20 12:46:20 ne Visit , Ansley Serrato [id number] i ty of Pediatric 4.2.7.2.686 [facility] [phone] [address] 2019-12-26 2019-12-26 Outpatient R [facility] [id number] Univers 12:30:00 12:30:00 , ANSLEY tran [facility] 2019-12-26 2019-12-26 Telephone [facility] 1.2.840.11 [id number] Univers 00:00:00 00:00:00 , Ansley Serrato [id number] it y of Pediatric 4.2.7.2.686 [facility] [id number] [address] 2019-12-26 2019-12-26 Telephone [facility] 1.2.840.11 [id number] Univers 00:00:00 00:00:00 , Ansley Serrato [id number] it y of Pediatric 4.2.7.2.686 [facility] [id number] [address] 2019-12-25 2019-12-25 Refill [facility] 1.2.840.114 [id number] Univers 00:00:00 00:00:00 , Ansley Serrato [id number] it y of Pediatric 4.2.7.2.686 [facility] [id number] [address] 2019-12-25 2019-12-25 Telephone [facility] 1.2.840.11 [id number] Univers 00:00:00 00:00:00 , Ansley Serrato [id number] it y of Pediatric 4.2.7.2.686 [facility] [phone] [address] 2019-11-29 2019-11-29 Outpatient [facility] [id number] Univers 13:10:00 13:10:00 , ANSLEY tran [facility] 2019-10-24 2019-10-24 Refill [facility] 1.2.840.114 [id number] Univers 00:00:00 00:00:00 , Ansley Serrato [id number] it y of Pediatric 4.2.7.2.686 [facility] [phone] [address] 2019-10-11 2019-10-11 Telephone [facility] 1.2.840.11 [id number] Univers 00:00:00 00:00:00 , Ansley Serrato 350.1.13.10 it y of Pediatric 4.2.7.2.686 [facility] [phone] [address] 2019-06-13 2019-06-13 Telephone [facility] 1.2.840.11 4 [id number] Univers 00:00:00 00:00:00 , Ansley Serrato 350.1.13.10 it y of Pediatric 4.2.7.2.686 [facility] [phone] [address] 2019-05-22 2019-05-22 Orders Doctor PITTS 1.2.840.114 [id number] Univers 00:00:00 00:00:00 Only Unassigned, KIRA 350.1.13.10 ity of [facility] 4.2.7.2.686 [place] as [phone] [address] 2019-05-12 2019-05-12 Office [facility] 1.2.840.114 [id number] Univers 14:38:12 16:04:42 Visit , Ansley Serrato 350.1.13.10 it y of Pediatric 4.2.7.2.686 [facility] [phone] [address] 2019-05-12 2019-05-12 Orders Doctor GISSELLE 1.2.840.114 [id number] Univers 00:00:00 00:00:00 Only Unassigned, KIRA 350.1.13.10 ity of [facility] 4.2.7.2.686 [place] as [phone] [address] 2019-05-12 2019-05-12 Letter [facility] 1.2.840.114 [id number] Univers 00:00:00 00:00:00 (Out) , Ansley Serrato 350.1.13.10 it y of Pediatric 4.2.7.2.686 [facility] [phone] [address] 2019-05-12 2019-05-12 Letter [facility] 1.2.840.114 [id number] Univers 00:00:00 00:00:00 (Out) , Ansley Serrato 350.1.13.10 it y of Pediatric 4.2.7.2.686 [facility] [id number] [address] 2019-05-12 2019-05-12 Letter [facility] 1.2.840.114 [id number] Univers 00:00:00 00:00:00 (Out) , Ansley Serrato 350.1.13.10 it y of Pediatric 4.2.7.2.686 [facility] [phone] [address] 2019-05-12 2019-05-12 Telephone [facility] 1.2.840.11 4 [id number] Univers 00:00:00 00:00:00 , Ansley Serrato 350.1.13.10 it y of Pediatric 4.2.7.2.686 [facility] [phone] [address] 2019-05-12 2019-05-12 Telephone [facility] 1.2.840.11 4 [id number] Univers 00:00:00 00:00:00 , Ansley Serrato 350.1.13.10 it y of Pediatric 4.2.7.2.686 [facility] [phone] [address] 2019-05-11 2019-05-11 Telephone [facility] 1.2.840.11 4 [id number] Univers 00:00:00 00:00:00 , Ansley Serrato 350.1.13.10 it y of Pediatric 4.2.7.2.686 [facility] [phone] [address] 2019-05-05 2019-05-05 Telephone [facility] 1.2.840.11 4 [id number] Univers 00:00:00 00:00:00 , Ansley Serrato 350.1.13.10 it y of Pediatric 4.2.7.2.686 [facility] [phone] [facility] [address] Results This patient has no known results.
[2022-08-16] MEDS ORDERED: LIDOCAINE 2% MPF 5 ML VIAL ONE (02:40)
--- NOTE | 2022-08-16 03:01 | ER ---
Nurse's Notes [facility] Name: Alf Cruz Age: 21 yrs Sex: Male : 2000 Arrival Date: 08/16/2022 Time: 01:42 Bed 17 Private MD: Diagnosis: Laceration without foreign body of right forearm Presentation: 08/16 02:05 Chief complaint: Patient states: Sustained cut on right lower arm while trying to get ke1 home home through the window because lost his keys. Coronavirus screen: Vaccine status: Patient reports receiving the 2nd dose of the covid vaccine. Ebola Screen: No symptoms or risks identified at this time. Complicating Factors: There are no complicating factors for this patient. Initial Sepsis Screen: Does the patient meet any 2 criteria?. Initial Sepsis Screen: Does the patient meet any 2 criteria? No. Patient's initial sepsis screen is negative. Does the patient have a suspected source of infection? No. Patient's initial sepsis screen is negative. Risk Assessment: Do you want to hurt yourself or someone else? Patient reports no desire to harm self or others. Onset of symptoms was August 16, 2022 at 01:30. 02:05 Method Of Arrival: Ambulatory ke1 02:05 Acuity: AKIKO 4 ke1 Triage Assessment: 02:14 General: Appears in no apparent distress. Behavior is appropriate for age. Pain: ke1 Complains of pain in right hand. Injury Description: Laceration sustained to R hand. Historical: - Allergies: 02:12 No Known Allergies; ke1 - PMHx: 02:12 ADD/ADHD; Asthma; Bipolar disorder; BORDERLINE PERSONALITY DISORDER; ke1 - Social history:: Smoking status: Patient denies any tobacco usage or history of. Screenin:13 Abuse screen: Denies threats or abuse. Nutritional screening: No deficits noted. ke1 Tuberculosis screening: No symptoms or risk factors identified. Fall Risk None identified. Assessment: 02:15 Injury Description: Laceration is clean, bleeding moderately. ke1 02:16 Musculoskeletal: No deficits noted. ke1 03:38 Reassessment: Patient states feeling better. Patient states symptoms have improved. ke1 Vital Signs: 02:05 BP 121 / 80; Pulse 84; Resp 17; Temp 99.2(O); Pulse Ox 97% on R/A; Weight 113.4 kg; ke1 Height 5 ft. 11 in. (180.34 cm); Pain 10/10; 03:38 BP 119 / 77; Pulse 75; Resp 19; Temp 98.9; Pulse Ox 100% on R/A; Pain 0/10; ke1 02:05 Body Mass Index 34.87 (113.40 kg, 180.34 cm) ke1 ED Course: 01:42 Patient arrived in ED. as 01:48 Cata Wen MD is Attending Physician. sd2 02:00 Ciarra Reyna RN is Primary Nurse. ke1 02:12 Triage completed. ke1 02:15 Arm band placed on left wrist. ke1 02:15 Bed in low position. Call light in reach. ke1 03:39 Assist provider with laceration repair on right hand Set up tray. Dressed with Patient ke1 tolerated well. 03:40 Patient did not have IV access during this emergency room visit. ke1 Administered Medications: 03:00 Drug: Lidocaine (2 %) 5 mg {Note: by .} Volume: 5 ml; Route: Infiltration; ke1 Medication: 03:40 VIS not applicable for this client. ke1 Outcome: 03:00 Discharge ordered by . sd2 03:40 Discharged to home ambulatory. ke1 03:40 Condition: good 03:40 Discharge instructions given to patient. 03:40 Patient left the ED. ke1 Signatures: Zamzam Nguyen Kouassi, SHI RN ke1 Cata Wen MD MD sd2
--- NOTE | 2022-08-16 03:01 | EDPHYS ---
Physician Documentation [facility] Name: Alf Cruz Age: 21 yrs Sex: Male : 2000 Arrival Date: 08/16/2022 Time: 01:42 Bed 17 Private MD: ED Physician Cata Wen HPI: 08/16 02:56 This 21 yrs old Male presents to ER via Ambulatory with complaints of sd2 Laceration To Hand. 02:56 21 yo M presents with CC of laceration to R wrist cut on window when he was trying to sd2 lift it up at his house and it shattered. Reports unknown last tetanus. Bleeding controlled. . Historical: - Allergies: 02:12 No Known Allergies; ke1 - PMHx: 02:12 ADD/ADHD; Asthma; Bipolar disorder; BORDERLINE PERSONALITY DISORDER; ke1 - Social history:: Smoking status: Patient denies any tobacco usage or history of. ROS: 02:56 Constitutional: Negative for fever, chills, and weight loss, MS/Extremity: Negative for sd2 injury and deformity, Skin: Positive for laceration and injury. Negative for rash. Neuro: Negative for headache, numbness and tingling. Exam: 02:56 Constitutional: This is a well developed, well nourished patient who is awake, alert, sd2 and in no acute distress. Head/Face: Normocephalic, atraumatic. Eyes: EOMI, normal conjunctiva bilaterally Skin: Warm, dry with normal turgor. Normal color with no rashes, no lesions, and no evidence of cellulitis. Approximately 8 cm laceration vertical noted to medial R wrist. 2+ RP. Sensation intact. FROM of all joints intact. MS/ Extremity: Pulses equal, no cyanosis. Neurovascular intact. Full, normal range of motion. Ambulatory without difficulty. Psych: Awake, alert, with orientation to person, place and time. Behavior, mood, and affect are within normal limits. Vital Signs: 02:05 BP 121 / 80; Pulse 84; Resp 17; Temp 99.2(O); Pulse Ox 97% on R/A; Weight 113.4 kg; ke1 Height 5 ft. 11 in. (180.34 cm); Pain 10/10; 03:38 BP 119 / 77; Pulse 75; Resp 19; Temp 98.9; Pulse Ox 100% on R/A; Pain 0/10; ke1 02:05 Body Mass Index 34.87 (113.40 kg, 180.34 cm) ke1 Laceration: 02:56 Wound Repair of 8cm ( 3.1in ) subcutaneous laceration to right arm. Linear shaped.. sd2 Hemostasis noted.. Distal neuro/vascular/tendon intact. Anesthesia: Local anesthetic administered with 2% lidocaine. Wound prep: Simple cleansing, Wound irrigation. Skin closed with 9 4-0 Prolene using simple sutures and sterile technique. Dressed with 4x4's, non-adherent dressing. Patient tolerated well. MDM: 02:25 Patient medically screened. sd2 02:56 Differential diagnosis: superficial laceration, tendon injury, vascular injury, among sd2 others. Data reviewed: vital signs, nurses notes. Counseling: I had a detailed discussion with the patient and/or guardian regarding: the historical points, exam findings, and any diagnostic results supporting the discharge/admit diagnosis, the need for outpatient follow up, to return to the emergency department if symptoms worsen or persist or if there are any questions or concerns that arise at home. ED course: Laceration repaired without complication. Advised pt of wound care and need for suture removal. Verbalizes understanding of discharge plan and strict return precautions. . 08/16 02:26 Order name: Dressing - Wound; Complete Time: 03:38 sd2 08/16 02:26 Order name: Prolene, Sutures; Complete Time: 03:25 sd2 08/16 02:26 Order name: Setup Suture Tray; Complete Time: 03:25 sd2 Administered Medications: 03:00 Drug: Lidocaine (2 %) 5 mg {Note: by MD.} Volume: 5 ml; Route: Infiltration; ke1 Disposition Summary: 08/16/22 03:00 Discharge Ordered Location: Home sd2 Problem: new sd2 Symptoms: have improved sd2 Condition: Stable sd2 Diagnosis - Laceration without foreign body of right forearm sd2 Followup: sd2 - With: Private Physician - When: 7 - 10 days - Reason: Recheck today's complaints, Continuance of care, Staple/Suture removal, Re-evaluation by your physician Discharge Instructions: - Discharge Summary Sheet sd2 - Laceration Care, Adult sd2 Forms: - Medication Reconciliation Form sd2 - Thank You Letter sd2 - Antibiotic Education sd2 - Prescription Opioid Use sd2 Signatures: Ciarra Reyna RN RN ke1 Cata Wen MD MD sd2
[2022-08-16 03:46] VITALS: BP 119/77; TEMP 98.9; O2SAT 100
== END 2022-08-16 03:40 | disposition home or self-care (01) ==
LOC: ER 01:41
PROC: 0JQG0ZZ Repair Right Lower Arm Subcutaneous Tissue and Fascia, Open Approach (ICD-10-PCS; principal; 2022-08-16)
DX: S51.811A Laceration without foreign body of right forearm, initial encounter (principal)
CPT/HCPCS: 99283; 12004; J2001